=== PATIENT | female | born 1950 | race Caucasian/White ===

== ENCOUNTER 2024-04-07 17:43 | Emergency (ER) | payer MEDICARE, MEDICAID, SELFPAY ==
[2024-04-07 17:45] VITALS: BMI 26.6
[2024-04-07 17:54] VITALS: BP 135/72; PULSE 92; RESP 18; TEMP 36.4; O2SAT 100
--- NOTE | 2024-04-07 18:07 | XR_ITS ---
Examination: PA lateral chest 2 views Technique: Upright PA lateral chest 2 views Exam date and time: April 07, 2024 1840 hrs. Comparison June 16, 2023 Indications: Coughing with altered mental status today. Findings: Normal heart size Ectatic thoracic aorta. No lobar pneumonia or pulmonary edema Significant osteoarthritis right glenohumeral joint Impression: No lobar pneumonia or pulmonary edema
--- NOTE | 2024-04-07 18:08 | XR_ITS ---
Examination: CT brain head without contrast. 2-D sagittal coronal reconstructions Date and time of exam:April 07, 2024 1926 hrs. Indications: Loss of consciousness episode one month ago with persistent altered mental status Comparison: October 22, 2023 CTDI: vol (mGy):48.4 DLP: (mGycm):947 Technique: Multiple CT axial sections of the brain have been obtained, 5 mm slice thickness. Contrast has not been administered. 2-D sagittal, coronal reconstructions have been obtained Low dose protocols were performed. One or more of the following dose reduction techniques were used; automated exposure control, adjustment of the mA and/or KV according to patient size, use of iterative reconstruction technique. Findings: No significant ventricular enlargement. Intra-axial or extra-axial hemorrhage density is not seen. No mass effect or midline shift Basal cisterns are not remarkable. Fourth ventricle is midline. Cranial vault intact. Impression: Negative for acute hemorrhage, mass effect or midline shift As clinically warranted, brain MRI follow-up would best assess for acute ischemic change
--- NOTE | 2024-04-07 18:08 | PD.EDRME ---
Rapid Medical Screening Exam RME Arrival date/time: 04/07/24 17:43 74-year-old female presents emergency department today with caregiver who reports patient has increased changes in mental status over the last month Chief Complaint: Altered Mental Status Vital signs: Vital Signs Temperature 97.5 F 04/07/24 17:54 Pulse Rate 92 04/07/24 17:54 Respiratory Rate 18 04/07/24 17:54 Blood Pressure 135/72 H 04/07/24 17:54 Pulse Oximetry (%) 100 04/07/24 17:54 Oxygen Delivery Method Room Air 04/07/24 17:54
[2024-04-07 18:39] LABS: Collection Type, Urine Clean Catch
[2024-04-07 18:40] LABS: Lactate (Lactic Acid) 1.3 mMol/L (0.4-2.0)
[2024-04-07 18:47] LABS: Basophils % (Auto) 1 % (0-2.5); Eosinophils # (Auto) 0.2 Thou/mm3 (0.0-0.5); Eosinophils % (Auto) 3 % (0-10); Hematocrit 35.9 % (36.0-46.0); Hemoglobin 11.8 g/dL (12.0-16.0); Immature Granulocytes % (Auto) 1 % (0-0); Immature Granulocytes Auto 0.05 Thou/mm3 (0.00-0.00); Lymphocytes # (Auto) 1.9 Thou/mm3 (1.0-4.8); Lymphocytes % (Auto) 29 % (10-50); Mean Corpuscular HGB Conc 32.9 g/dl (31.0-37.0); Mean Corpuscular Hemoglobin 29.9 pg (25.0-35.0); Mean Corpuscular Volume 91 fL (80-100); Monocytes # (Auto) 0.7 Thou/mm3 (0.0-0.8); Monocytes % (Auto) 11 % (0-12); Neutrophils # (Auto) 3.8 Thou/mm3 (1.8-7.7); Neutrophils % (Auto) 57 % (37-80); Nucleated Red Blood Cell % 0 /100 WBC (0); Platelet Count 110 Thou/mm3 (140-440); RDW Standard Deviation 49.2 fL (36.4-46.3); Red Blood Count 3.94 Miln/mm3 (4.00-5.20); White Blood Count 6.7 Thou/mm3 (3.6-11.0)
[2024-04-07 19:06] LABS: Ammonia < 10 uMol/L (11-32)
[2024-04-07 19:22] LABS: Bilirubin,Urine Negative (Negative); Blood,Urine Negative (Negative); Budding Yeast,Urine Present; Color,Urine Yellow (Lt Yel-Yel); Glucose, Urine Negative (Negative); Hyaline Casts,Urine < 1 /hpf (0-1); Ketones,Urine Trace (Negative); Leukocyte Esterase,Urine Positive (Negative); Nitrite,Urine Negative (Negative); PH,Urine 6.5 (5.0-7.0); Protein,Urine 1+ (Neg - Trace); RBC,Urine 15 /hpf (0-3); Specific Gravity,Urine 1.031 (1.001-1.035); Squamous Epithelial Cell,Urine 5 /hpf (0-5); WBC,Urine 1043 /hpf (0-5)
[2024-04-07 19:23] LABS: Clarity,Urine Turbid (Clear/Hazy)
[2024-04-07 19:57] VITALS: BP 162/73; PULSE 63; RESP 17; O2SAT 100
[2024-04-07 20:30] LABS: Alanine Aminotransferase 20 U/L (10-49); Albumin, Serum 4.2 gm/dL (3.4-4.8); Albumin/Globulin Ratio 1.8 (1.2-2.2); Alkaline Phosphatase 97 U/L (46-116); Anion Gap 7 (7-16); Aspartate Amino Transferase 20 U/L (0-34); BUN/Creatinine Ratio 36 Ratio (12-20); Bilirubin,Total 0.3 mg/dL (0.3-1.2); Blood Urea Nitrogen 29 mg/dL (9-23); Calcium 9.5 mg/dL (8.3-10.6); Calcium (Corrected) 9.5 mg/dL (8.5-10.1); Carbon Dioxide 26.9 mMol/L (20.0-31.0); Chloride 102 mMol/L (98-107); Creatinine (Component) 0.8 mg/dL (0.6-1.3); Estimated Creatinine Clearance 55.9 mL/min (>60); Globulin 2.3 gm/dL (2.3-3.5); Glucose 94 mg/dL (74-106); Osmolality,Calculated 277 (275-295); Potassium 4.5 mMol/L (3.4-5.1); Procalcitonin 0.04 ng/ml (0.0-0.49); Sodium 136 mMol/L (136-145); Total Protein 6.5 gm/dL (5.7-8.2); eGFR > 60 See Note
--- NOTE | 2024-04-07 20:53 | EDNOTE_ITS ---
<Statement entered by Claudia Henao MD - 04/08/24 21:15> As co-signing physician, I was present and available for consult prn. I concur with the plan and care as documented by the midlevel provider. ED General RME/HPI General Chief complaint: Altered Mental Status Stated complaint: AMS FOR 1 MONTH, SENT BY PSYCH MD Time Seen by Provider: 04/07/24 18:47 Arrival date/time: 04/07/24 17:43 CC: Slow increasing confusion over the past month. Caregiver reports that the patient approximately 3 weeks ago was diagnosed with a urinary tract infection was given antibiotics it resolved and then promptly returned. She states the patient has become more confused but is responding to the most basic questions. Care provider denies falls fever at home diarrhea. RME / HPI RME / HPI narrative: 04/07/24 17:43 74-year-old female presents emergency department today with caregiver who reports patient has increased changes in mental status over the last month Related Data Home Medications ?Medication ?Instructions ?Recorded ?Confirmed ascorbic acid (vitamin C) 500 mg 500 mg PO BID #0 tabs 10/21/14 06/16/23 tablet (Vitamin C) aspirin 81 mg tablet,delayed 1 tab PO DAILY 01/01/18 06/16/23 release diclofenac sodium 75 mg 75 mg PO QDAY 09/06/21 06/16/23 tablet,delayed release docusate sodium 100 mg capsule 100 mg PO BID 09/06/21 06/16/23 levomilnacipran 80 mg capsule,24 80 mg PO HS 09/06/21 06/16/23 hr,extended release (Fetzima) metformin 500 mg tablet 500 mg PO QDAY 09/06/21 06/16/23 omeprazole 40 mg capsule,delayed 1 cap PO QDAY 09/06/21 06/16/23 release simvastatin 20 mg tablet 20 mg PO QPM 09/06/21 06/16/23 cetirizine 10 mg tablet 10 mg PO HS 06/16/23 06/16/23 deutetrabenazine 9 mg tablet 9 mg PO BID 06/16/23 06/16/23 (Austedo) divalproex 500 mg tablet,delayed 500 mg PO TID 06/16/23 06/16/23 release hydroxyzine HCl 50 mg tablet 50 mg PO HS 06/16/23 06/16/23 losartan 50 mg tablet 50 mg PO DAILY 06/16/23 06/16/23 oxybutynin chloride 5 mg tablet 5 mg PO BID 06/16/23 06/16/23 quetiapine 300 mg tablet 300 mg PO HS 06/16/23 06/16/23 Previous Rx's ?Medication ?Instructions ?Recorded ciprofloxacin HCl 500 mg tablet 500 mg PO BID #14 tabs 04/07/24 (Cipro) Allergies Allergy/AdvReac Type Severity Reaction Status Date / Time No Known Allergies Allergy Verified 10/22/23 15:47 Review of Systems Review of Systems ROS Unobtainable: unobtainable due to mental status Past Medical History Past Medical History NEUROLOGIC: Negative Neurological Disorders, Dementia, Seizures or Epilepsy CARDIAC: Positive Cardiac Disorders, Hypercholesterolemia and Hypertension; Negative Congestive Heart Failure RESPIRATORY: Negative Chronic Obstructive Pulmonary Disease (COPD) or Asthma GASTROINTESTINAL: Positive Gastroesophageal Reflux Disease; Negative Gastrointestinal Disorders GENITOURINARY: Negative Genitourinary Disorders, Renal Disease or Kidney Stones MUSCULOSKELETAL: Negative Musculoskeletal Disorders ENDOCRINE: Positive Endocrine Disorders and Diabetes Mellitus Type 2; Negative Diabetes Mellitus Type 1 HEMATOLOGIC: Negative Blood Disorders or Sickle Cell Disease PSYCHO/SOCIAL: Positive Schizophrenia, Bipolar Disorder, Depression and Behavior Problems OTHER HISTORY: Positive Developmental Delay and Falls; Negative Autoimmune Disease, Autism, Blood Transfusions, Blood Transfusion Reaction or Anesthesia Reactions Family History FAMILY HISTORY: Negative Family Psychiatric Problems, Family Respiratory Disorders, Family Cardiac Disorders or Family Gastrointestinal Problems Social History SMOKING STATUS: Never smoker SECOND HAND EXPOSURE: No SUBSTANCE USE: does not use ED Exam Narrative Physical exam: [General: Emotional, mildly confused, appears not in any acute distress Head normocephalic HEENT: Eyes pupils are PERRLA EOMs are intact no injected conjunctiva mouth pink moist membranes uvula is midline swallow symmetrical phonation is normal. Within acceptable limits Neck is supple nontender no JVD no edema Chest equal chest rise nontender to palpation Respiratory: Clear to auscultation no wheezes crackles or rubs CV: Rate rhythm is regular no murmurs rubs or clicks Abdomen is distended secondary to body habitus soft nontender no masses positive bowel sounds all 4 quadrants Back: No CVA tenderness no spinous process tenderness from cervical spine thoracic and lumbar spine Skin: Intact no petechiae rash induration ulceration or crepitus Extremities: Moving all extremity against resistance cap refill less than 2 seconds neurosensory intact. No lower extremity edema Neuro: Awake alert oriented x1, self, Glascow coma 15 no focal deficits] Course Quality Measures none Orders Category Date Time Status CT head/brain wo con Stat Exams 04/07/24 18:08 Completed XR chest 2V Stat Exams 04/07/24 18:07 Completed Ammonia Stat Lab 04/07/24 18:29 Completed Blood Culture (Lab) Stat Lab 04/07/24 18:32 Received CBC Stat Lab 04/07/24 18:29 Completed Comprehensive Metabolic Panel Stat Lab 04/07/24 18:29 Completed Lactate (Lactic Acid) Stat Lab 04/07/24 18:29 Completed Procalcitonin Stat Lab 04/07/24 18:29 Completed Urinalysis Stat Lab 04/07/24 18:15 Completed Urine Culture Stat Lab 04/07/24 18:15 Received Sodium Chloride 0.9% 1000 ml [Ns] 1,000 ml Med 04/07/24 20:52 Discontinued IV 999 mls/hr cefTRIAXone/D5w 1gm IV premix [Rocephin/D5w 1gm IV Med 04/07/24 20:52 Discontinued premix] 50 ml IV X1 Vital Signs Vital signs: Vital Signs Temperature 97.5 F 04/07/24 17:54 Pulse Rate 92 04/07/24 17:54 Respiratory Rate 18 04/07/24 17:54 Blood Pressure 135/72 H 04/07/24 17:54 Pulse Oximetry (%) 100 04/07/24 17:54 Oxygen Delivery Method Room Air 04/07/24 17:54 [facility] Patient data External records reviewed:: [facility] previous records Clinical information provided by:: patient and hair assistant Social determinants that could affect healthcare access:: none Patient has the following chronic illnesses:: Diabetes hypertension hyperlipidemia How is presenting disease/condition affected by chronic disease/condition?: u neffected by Evaluation data The following diagnostics were reviewed and interpreted by me:: lab results and radiology exam(s) Lab and/or radiology exams considered but not ordered:: CBC shows no leukocytosis, there is a stable H&H anemia of 11 and 35 respectively no thrombocytopenia CMP shows a sodium 136 potassium 3.4 chloride of 102 CO2 of 26.9 BUN of 29 creatinine 0.8 glucose of 94. Chest x-ray is negative as interpreted me read by radiology CT of the head is negative as interpreted by me read by radiology for any acute finding requires emergent or immediate intervention. Urine is positive for urinary tract infection Interpretation Summary: UTI dehydration Patient was given IV antibiotics and IV fluids will discharge the patient home on antibiotics for follow-up. Care provider was advised to picking belt operator the culture and sensitivity in 7 days from this urine specimen. Medications Medications considered but not ordered:: None Medication administrations:: Medication Administration History Discontinued Medications Sodium Chloride (Ns) 1,000 mls @ 999 mls/hr IV .Q1H1M ONE Stop: 04/07/24 21:52 Last Admin: 04/07/24 21:06 Dose: 999 mls/hr Documented By: CHARLEY Ceftriaxone Sodium/Dextrose (Rocephin/D5w 1gm Iv Premix) 50 mls @ 100 mls/hr IV X1 ONE Stop: 04/07/24 21:21 Last Admin: 04/07/24 21:06 Dose: 100 mls/hr Documented By: CHARLEY None Consultations Consultation(s) initiated? (list below): No Diagnosis Differential Diagnosis ED Complaint MDM: UTI pyelonephritis cystitis Most likely diagnosis given after review of the tests above:: UTI Admission Indicated Admission indicated?: not indicated Explain why admission is indicated or not indicated:: Stable for outpatient follow-up Admission Request Was there a request for admission?: No Disposition Plan Disposition Plan: Discharge Discharge Attestation Discharge Attestation: The patient and all family members were given an opportunity to ask questions and understood the discharge instructions. Discharge instructions specifically effects, indications for sooner follow up or return to the emergency department, and the expected course of current diagnosis. Patient condition: Stable Medical Decision Making Differential Diagnosis Differential Diagnosis: UTI pyelonephritis cystitis Lab Data 04/07/24 18:29 04/07/24 18:29 Labs: Lab Results 04/07/24 04/07/24 Range/Units 18:15 18:29 WBC 6.7 (3.6-11.0) Thou/mm3 RBC 3.94 L (4.00-5.20) Miln/mm3 Hgb 11.8 L (12.0-16.0) g/dL Hct 35.9 L (36.0-46.0) % MCV 91 (80-100) fL MCH 29.9 (25.0-35.0) pg MCHC 32.9 (31.0-37.0) g/dl RDW Std Deviation 49.2 H (36.4-46.3) fL Plt Count 110 L (140-440) Thou/mm3 Neut % (Auto) 57 (37-80) % Lymph % (Auto) 29 (10-50) % [place] % (Auto) 11 (0-12) % Eos % (Auto) 3 (0-10) % Baso % (Auto) 1 (0-2.5) % Neut # (Auto) 3.8 (1.8-7.7) Thou/mm3 Lymph # (Auto) 1.9 (1.0-4.8) Thou/mm3 [place] # (Auto) 0.7 (0.0-0.8) Thou/mm3 Eos # (Auto) 0.2 (0.0-0.5) Thou/mm3 Baso # (Auto) 0.0 (0.0-0.2) Thou/mm3 Immature Gran # (Auto) 0.05 H (0.00-0.00) Thou/mm3 Absolute Nucleated RBC 0.00 (0.00-0.00) Thou/mm3 Immature Gran % 1 H (0-0) % Nucleated RBC % 0 (0) /100 WBC Sodium 136 (136-145) mMol/L Potassium 4.5 (3.4-5.1) mMol/L Chloride 102 (98-107) mMol/L Carbon Dioxide 26.9 (20.0-31.0) mMol/L Anion Gap 7 (7-16) BUN 29 H (9-23) mg/dL Creatinine 0.8 (0.6-1.3) mg/dL Estim Creat Clear Calc 55.9 L (>60) mL/min eGFR > 60 (60 - ) See Note BUN/Creatinine Ratio 36 H (12-20) Ratio Glucose 94 (74-106) mg/dL Calculated Osmolality 277 (275-295) Lactic Acid 1.3 (0.4-2.0) mMol/L Calcium 9.5 (8.3-10.6) mg/dL Corrected Calcium 9.5 (8.5-10.1) mg/dL Total Bilirubin 0.3 (0.3-1.2) mg/dL AST 20 (0-34) U/L ALT 20 (10-49) U/L Alkaline Phosphatase 97 (46-116) U/L Ammonia < 10 L (11-32) uMol/L Total Protein 6.5 (5.7-8.2) gm/dL Albumin 4.2 (3.4-4.8) gm/dL Globulin 2.3 (2.3-3.5) gm/dL Albumin/Globulin Ratio 1.8 (1.2-2.2) Procalcitonin 0.04 (0.0-0.49) ng/ml Ur Collection Type Clean Catch Urine Color Yellow (Lt Yel-Yel) Urine Clarity Turbid A (Clear/Hazy) Urine pH 6.5 (5.0-7.0) Ur Specific [place]oth 1.031 (1.001-1.035) Urine Protein 1+ A (Neg - Trace) Urine Glucose (UA) Negative (Negative) Urine Ketones Trace (Negative) Urine Blood Negative (Negative) Urine Nitrite Negative (Negative) Urine Bilirubin Negative (Negative) Urine Urobilinogen (Auto) 4.0 (0.0-1.0) mg/dL Ur Leukocyte Esterase Positive (Negative) Urine RBC 15 H (0-3) /hpf Urine WBC 1043 H (0-5) /hpf Ur Squamous Epith Cells 5 (0-5) /hpf Urine Bacteria None (None) Hyaline Casts < 1 (0-1) /hpf Urine Yeast (Budding) Present A (None) Discharge Plan Plan Patient Disposition: HOME (Self Care) Patient condition on transfer: Stable Prescriptions/Referrals Prescriptions/Med Rec: New ciprofloxacin HCl [Cipro] 500 mg tablet 500 mg PO BID Qty: 14 0RF No Action ascorbic acid (vitamin C) [Vitamin C] 500 MG tablet 500 mg PO BID Qty: 0 aspirin 81 mg Tablet,Delayed Release (Dr/Ec) 1 tab PO DAILY Rx Instructions: for cardio protection metformin 500 mg tablet 500 mg PO QDAY omeprazole 40 mg capsule,delayed release(DR/EC) 1 cap PO QDAY Rx Instructions: for gerd simvastatin 20 mg tablet 20 mg PO QPM docusate sodium 100 mg capsule 100 mg PO BID diclofenac sodium 75 mg tablet,delayed release (DR/EC) 75 mg PO QDAY Rx Instructions: for pain/inflammation Fetzima 80 mg capsule,extended release 24 hr 80 mg PO HS Rx Instructions: for behavior disorder oxybutynin chloride 5 mg tablet 5 mg PO BID [place] 9 mg Tablet 9 mg PO BID quetiapine 300 mg tablet 300 mg PO HS cetirizine 10 mg tablet 10 mg PO HS hydroxyzine HCl 50 mg tablet 50 mg PO HS losartan 50 mg tablet 50 mg PO DAILY divalproex 500 mg tablet,delayed release (DR/EC) 500 mg PO TID Referrals: Gera Seay MD [Primary Care Provider] - In 1 week Problem List Clinical Impression: Urinary tract infection, Dehydration Patient/Caregiver Discharge Instructions Education Materials: ED Dehydration (Adult), ED CYSTITIS Female Adult Additional Instructions: Take the medications as prescribed encourage plenty of fluids, call back and get the culture and sensitivity in 7 days for the urine show specimen submitted today. If there is a worsening of symptoms in spite of the medications return the emergency room immediately for further evaluation. Print Language: Turkish Stand Alone Forms: Malika Award Info., Patient Portal Info Letter, Work/School Release PA/FLAVOR EXTRACTOR Supervising Physician PA/FLAVOR EXTRACTOR Supervising Physician: Jason Spencer ENP
[2024-04-07] MEDS: cefTRIAXone/D5w 1gm IV premix 50 ML IV (21:06)
[2024-04-07] MEDS: SODIUM CHLORIDE 0.9% 1000 ML 1,000 ML 999 ML IV (21:06)
[2024-04-07 22:18] VITALS: BP 177/94; PULSE 72; RESP 16; O2SAT 100
[2024-04-08 00:17] VITALS: BP 175/88; PULSE 82; RESP 18; TEMP 36.6; O2SAT 99
== END 2024-04-08 00:15 | disposition home or self-care (01) ==
PROVIDERS: Nurse Practitioner Primary Care; Emergency Provider Emergency Medicine; PCP Family Medicine
DX: E86.0 Dehydration (principal); N39.0 Urinary tract infection, site not specified; R41.82 Altered mental status, unspecified; R05.9 Cough, unspecified
CPT/HCPCS: 36415; 70450; 71046; 80053; 81001; 82140; 83605; 84145; 85025; 87040; 87077; 87086; 87186; 99284; J0696; J7030

== ENCOUNTER 2024-06-08 09:34 | Emergency (ER) | payer MEDICARE, MEDICAID, SELFPAY ==
[2024-06-08 09:55] VITALS: BP 129/76; PULSE 99; RESP 18; TEMP 36.4; O2SAT 95
--- NOTE | 2024-06-08 09:59 | PD.EDADULT ---
ED General RME/HPI General Chief complaint: General Adult/Misc Complain Stated complaint: SENT FROM PMD DUE TO LOW TEMP, NO COMPLAINTS Time Seen by Provider: 06/08/24 09:39 Arrival date/time: 06/08/24 09:34 74-year-old female with history of schizophrenia and developmental delay presents to the emergency department today with caregiver reports that the patient went to the doctor's office today to establish care with a new physician they were unable to obtain a temperature and therefore they referred her to the ER for further evaluation Limitations: no limitations Related Data Home Medications ?Medication ?Instructions ?Recorded ?Confirmed ascorbic acid (vitamin C) 500 mg 500 mg PO BID #0 tabs 10/21/14 06/16/23 tablet (Vitamin C) aspirin 81 mg tablet,delayed 1 tab PO DAILY 01/01/18 06/16/23 release diclofenac sodium 75 mg 75 mg PO QDAY 09/06/21 06/16/23 tablet,delayed release docusate sodium 100 mg capsule 100 mg PO BID 09/06/21 06/16/23 levomilnacipran 80 mg capsule,24 80 mg PO HS 09/06/21 06/16/23 hr,extended release (Fetzima) metformin 500 mg tablet 500 mg PO QDAY 09/06/21 06/16/23 omeprazole 40 mg capsule,delayed 1 cap PO QDAY 09/06/21 06/16/23 release simvastatin 20 mg tablet 20 mg PO QPM 09/06/21 06/16/23 cetirizine 10 mg tablet 10 mg PO HS 06/16/23 06/16/23 deutetrabenazine 9 mg tablet 9 mg PO BID 06/16/23 06/16/23 (Austedo) divalproex 500 mg tablet,delayed 500 mg PO TID 06/16/23 06/16/23 release hydroxyzine HCl 50 mg tablet 50 mg PO HS 06/16/23 06/16/23 losartan 50 mg tablet 50 mg PO DAILY 06/16/23 06/16/23 oxybutynin chloride 5 mg tablet 5 mg PO BID 06/16/23 06/16/23 quetiapine 300 mg tablet 300 mg PO HS 06/16/23 06/16/23 Previous Rx's ?Medication ?Instructions ?Recorded ciprofloxacin HCl 500 mg tablet 500 mg PO BID #14 tabs 04/07/24 (Cipro) Allergies Allergy/AdvReac Type Severity Reaction Status Date / Time No Known Allergies Allergy Verified 06/08/24 09:38 Review of Systems Review of Systems Systems Reviewed: All systems reviewed, normal except as documented ROS Unobtainable: other (Developmental delay) Constitutional Constitutional: Reports system reviewed and no additional complaints, except as documented, Denies fever(s) and Denies headache(s) Eyes Eyes: Reports system reviewed and no additional complaints, except as documented and Denies blurry vision ENT Ears, Nose, Mouth, and Throat: Reports system reviewed and no additional complaints, except as documented, Denies headache(s), Denies nasal congestion and Denies nasal discharge Cardiovascular Cardiovascular: Reports system reviewed and no additional complaints, except as documented, Denies chest pain and Denies dyspnea Respiratory Respiratory: Reports system reviewed and no additional complaints, except as documented, Denies chest congestion, Denies cough and Denies dyspnea Gastrointestinal Gastrointestinal: Reports system reviewed and no additional complaints, except as documented and Denies abdominal pain Integumentary/Breasts Skin/Breast: Reports system reviewed and no additional complaints, except as documented and Denies rash Neurologic Neurologic: Reports system reviewed and no additional complaints, except as documented, Reports as per HPI and Denies headache(s) Past Medical History Past Medical History NEUROLOGIC: Negative Neurological Disorders, Dementia, Seizures or Epilepsy CARDIAC: Positive Cardiac Disorders, Hypercholesterolemia and Hypertension; Negative Congestive Heart Failure RESPIRATORY: Negative Chronic Obstructive Pulmonary Disease (COPD) or Asthma GASTROINTESTINAL: Positive Gastroesophageal Reflux Disease; Negative Gastrointestinal Disorders GENITOURINARY: Negative Genitourinary Disorders, Renal Disease or Kidney Stones MUSCULOSKELETAL: Negative Musculoskeletal Disorders ENDOCRINE: Positive Endocrine Disorders and Diabetes Mellitus Type 2; Negative Diabetes Mellitus Type 1 HEMATOLOGIC: Negative Blood Disorders or Sickle Cell Disease PSYCHO/SOCIAL: Positive Schizophrenia, Bipolar Disorder, Depression and Behavior Problems OTHER HISTORY: Positive Developmental Delay and Falls; Negative Autoimmune Disease, Autism, Blood Transfusions, Blood Transfusion Reaction or Anesthesia Reactions Family History FAMILY HISTORY: Negative Family Psychiatric Problems, Family Respiratory Disorders, Family Cardiac Disorders or Family Gastrointestinal Problems Social History SMOKING STATUS: Never smoker SECOND HAND EXPOSURE: No SUBSTANCE USE: does not use ED Exam General Limitations: Present no limitations General appearance: Present alert and in no apparent distress Head Head exam: Present atraumatic, normocephalic and normal inspection Eye Eye exam: Present normal appearance, PERRL and EOMI; Absent conjunctival injection ENT ENT exam: Present normal exam, normal oropharynx and mucous membranes moist Neck Neck exam: Present normal inspection, full ROM and trachea midline Chest Chest inspection: Present normal inspection and symmetric chest wall rise Respiratory Respiratory exam: Present normal lung sounds bilaterally; Absent respiratory distress Cardiovascular Cardiovascular exam: Present regular rate, normal rhythm and normal heart sounds Abdominal Exam Abdominal exam: Present soft and normal bowel sounds; Absent distention, tenderness, guarding, rebound or rigidity Extremities Exam Extremities exam: Present normal inspection and full ROM Back Exam Back exam: Present normal inspection and full ROM Neurological Exam Neurological exam: Present alert, oriented X3, CN II-XII intact, normal gait and reflexes normal; Absent motor sensory deficit Psychiatric Psychiatric exam: Present normal affect and normal mood Skin Skin exam: Present warm, dry, intact and normal color Course Quality Measures none Vital Signs Vital signs: Vital Signs Temperature 97.6 F 06/08/24 09:55 Pulse Rate 99 06/08/24 09:55 Respiratory Rate 18 06/08/24 09:55 Blood Pressure 129/76 06/08/24 09:55 Pulse Oximetry (%) 95 06/08/24 09:55 Oxygen Delivery Method Room Air 06/08/24 09:55 O2 saturation 95% room air within normal limits MDM Patient data External records reviewed:: [facility] previous records Clinical information provided by:: director heart Social determinants that could affect healthcare access:: mental health Patient has the following chronic illnesses:: See history How is presenting disease/condition affected by chronic disease/condition?: uneffected by Evaluation data The following diagnostics were reviewed and interpreted by me:: other (specify) (N/A) Lab and/or radiology exams considered but not ordered:: Not ordered Interpretation Summary: Not ordered Medications Medications considered but not ordered:: No meds Medication administrations:: No meds Consultations Consultation(s) initiated? (list below): No Diagnosis Differential Diagnosis ED Complaint MDM: Schizophrenia, normal exam, developmental delay Most likely diagnosis given after review of the tests above:: Normal exam Admission Indicated Admission indicated?: not indicated Explain why admission is indicated or not indicated:: No criteria Admission Request Was there a request for admission?: No Disposition Plan Disposition Plan: Discharge Discharge Attestation Discharge Attestation: The patient and all family members were given an opportunity to ask questions and understood the discharge instructions. Discharge instructions specifically effects, indications for sooner follow up or return to the emergency department, and the expected course of current diagnosis. Patient condition: Stable Medical Decision Making MDM Narrative MDM Narrative: 74-year-old female with history of schizophrenia and developmental delay presents to the emergency department today with caregiver reports that the patient went to the doctor's office today to establish care with a new physician they were unable to obtain a temperature and therefore they referred her to the ER for further evaluation On exam patient well-appearing patient does not appear ill or toxic Per caregiver patient is acting appropriately Vital signs obtained here no acute emergent abnormality noted Patient discharged home in no distress to follow-up with primary care doctor in the next 24 to 48 hours and for any worsening symptoms to return to the ER immediately Differential Diagnosis Differential Diagnosis: Schizophrenia, normal exam, developmental delay Medical Records Medical records reviewed: Yes I reviewed the patient's medical records. Discharge Plan Plan Patient Disposition: HOME (Self Care) Disposition Comment: Stable Prescriptions/Referrals Prescriptions/Med Rec: No Action ascorbic acid (vitamin C) [Vitamin C] 500 MG tablet 500 mg PO BID Qty: 0 aspirin 81 mg Tablet,Delayed Release (Dr/Ec) 1 tab PO DAILY Rx Instructions: for cardio protection metformin 500 mg tablet 500 mg PO QDAY omeprazole 40 mg capsule,delayed release(DR/EC) 1 cap PO QDAY Rx Instructions: for gerd simvastatin 20 mg tablet 20 mg PO QPM docusate sodium 100 mg capsule 100 mg PO BID diclofenac sodium 75 mg tablet,delayed release (DR/EC) 75 mg PO QDAY Rx Instructions: for pain/inflammation Fetzima 80 mg capsule,extended release 24 hr 80 mg PO HS Rx Instructions: for behavior disorder oxybutynin chloride 5 mg tablet 5 mg PO BID Austedo 9 mg Tablet 9 mg PO BID quetiapine 300 mg tablet 300 mg PO HS cetirizine 10 mg tablet 10 mg PO HS hydroxyzine HCl 50 mg tablet 50 mg PO HS losartan 50 mg tablet 50 mg PO DAILY divalproex 500 mg tablet,delayed release (DR/EC) 500 mg PO TID ciprofloxacin HCl [Cipro] 500 mg tablet 500 mg PO BID Qty: 14 0RF Problem List Clinical Impression: Normal exam Patient/Caregiver Discharge Instructions Additional Instructions: Please follow up with your primary care doctor in the next 24-48hrs for any worsening symptoms return here immediately Print Language: Arabic Stand Alone Forms: Malika Award Info., Patient Portal Info Letter PA/MEAT INSPECTOR Supervising Physician PA/MEAT INSPECTOR Supervising Physician: Dr Tamez
== END 2024-06-08 10:06 | disposition home or self-care (01) ==
LOC: SERX 10:11
PROVIDERS: Emergency Provider Emergency Medicine; PCP Physician Assistant
DX: Z00.00 Encounter for general adult medical examination without abnormal findings (principal); F20.9 Schizophrenia, unspecified
CPT/HCPCS: 99281

== ENCOUNTER → 2024-07-10 | Outpatient (CLI) | payer MEDICARE, MEDICAID, SELFPAY ==
--- NOTE | 2024-07-10 15:30 | XR_ITS ---
Examination: Breast ultrasound, unilateral, left complete Date and time of exam: July 10, 2024, 1530 hrs. Indications: Mammogram 01/13/2024 6 mm nodule retroareolar region left breast Technique: Real-time ponce scale ultrasonographic imaging performed left breast including all 4 quadrants as well as nipple retroareolar and axillary region. Findings: No cystic or solid mass, dilated ducts in the retroareolar region left breast Impression: BI-RADS Category 2: Benign findings
== END | disposition home or self-care (01) ==
PROVIDERS: PCP Physician Assistant; Referring Provider Physician Assistant; Visit Provider Physician Assistant
DX: R92.8 Other abnormal and inconclusive findings on diagnostic imaging of breast (principal)
CPT/HCPCS: 76641

== ENCOUNTER 2024-11-02 10:39 | Inpatient (IN) | payer MEDICARE, MEDICAID, SELFPAY ==
[2024-11-02 10:41] VITALS: BMI 27.7
[2024-11-02 10:58] VITALS: BP 93/63; PULSE 102; RESP 16; TEMP 37.7; O2SAT 96
--- NOTE | 2024-11-02 11:37 | PD.EDRME ---
Rapid Medical Screening Exam RME Arrival date/time: 11/02/24 10:39 Chief Complaint: Altered Mental Status Vital signs: Vital Signs Temperature 99.9 F 11/02/24 10:58 Pulse Rate 102 H 11/02/24 10:58 Respiratory Rate 16 11/02/24 10:58 Blood Pressure 93/63 11/02/24 10:58 Pulse Oximetry (%) 96 11/02/24 10:58 Oxygen Delivery Method Room Air 11/02/24 10:58 Pulse ox is 96% room air Vital signs reviewed by provider: Yes RME Narrative: 74-year-old female presents to the ED with a complaint of being altered that began earlier this morning. As per caregiver she was told the patient is not acting herself and has been actually falling asleep even throughout transfer. Has had an care at home to call her in car to the parking lot of the doctor's office.
--- NOTE | 2024-11-02 11:39 | XR_ITS ---
Examination: CT brain head without contrast. 2-D sagittal coronal reconstructions Date and time of exam:November 02, 2024 1241 hours INDICATIONS: Altered mental status today CTDI: vol (mGy):51.8 DLP: (mGycm):922 Technique: Multiple CT axial sections of the brain have been obtained, 5 mm slice thickness. Contrast has not been administered. 2-D sagittal, coronal reconstructions have been obtained Low dose protocols were performed. One or more of the following dose reduction techniques were used; automated exposure control, adjustment of the mA and/or KV according to patient size, use of iterative reconstruction technique. Findings: No significant ventricular enlargement. Intra-axial or extra-axial hemorrhage density is not seen. No mass effect or midline shift Basal cisterns are not remarkable. Fourth ventricle is midline. Cranial vault intact. Impression: Negative for acute hemorrhage, mass effect or midline shift Advise clinical correlation follow-up accordingly
[2024-11-02 12:25] LABS: Lactate (Lactic Acid) 1.7 mMol/L (0.4-2.0)
[2024-11-02 12:31] LABS: Basophils # (Auto) 0.0 Thou/mm3 (0.0-0.2); Basophils % (Auto) 0 % (0-2.5); Eosinophils # (Auto) 0.0 Thou/mm3 (0.0-0.5); Eosinophils % (Auto) 0 % (0-10); Hematocrit 37.5 % (36.0-46.0); Hemoglobin 12.9 g/dL (12.0-16.0); Immature Granulocytes Auto 0.05 Thou/mm3 (0.00-0.00); Lymphocytes # (Auto) 0.5 Thou/mm3 (1.0-4.8); Lymphocytes % (Auto) 6 % (10-50); Mean Corpuscular HGB Conc 34.4 g/dl (31.0-37.0); Mean Corpuscular Hemoglobin 31.1 pg (25.0-35.0); Mean Corpuscular Volume 90 fL (80-100); Monocytes # (Auto) 1.7 Thou/mm3 (0.0-0.8); Monocytes % (Auto) 19 % (0-12); Neutrophils # (Auto) 6.7 Thou/mm3 (1.8-7.7); Neutrophils % (Auto) 74 % (37-80); Nucleated Red Blood Cell # 0.00 Thou/mm3 (0.00-0.00); Nucleated Red Blood Cell % 0 /100 WBC (0); RDW Standard Deviation 49.9 fL (36.4-46.3); Red Blood Count 4.15 Miln/mm3 (4.00-5.20); White Blood Count 9.0 Thou/mm3 (3.6-11.0)
[2024-11-02 12:33] LABS: Platelet Count 62 Thou/mm3 (140-440)
[2024-11-02 12:51] LABS: INR 1.1 (0.9-1.3); Partial Thromboplastin Time 31.6 Seconds (22.0-36.0); Prothrombin Time 11.9 Seconds (9.0-12.2)
[2024-11-02 12:57] LABS: Alanine Aminotransferase 12 U/L (10-49); Albumin, Serum 3.9 gm/dL (3.4-4.8); Albumin/Globulin Ratio 1.5 (1.2-2.2); Alkaline Phosphatase 74 U/L (46-116); Anion Gap 12 (7-16); Aspartate Amino Transferase 15 U/L (0-34); BUN/Creatinine Ratio 22 Ratio (12-20); Bilirubin,Total 0.6 mg/dL (0.3-1.2); Blood Urea Nitrogen 28 mg/dL (9-23); Calcium 9.1 mg/dL (8.3-10.6); Calcium (Corrected) 9.2 mg/dL (8.5-10.1); Carbon Dioxide 27.1 mMol/L (20.0-31.0); Chloride 104 mMol/L (98-107); Creatinine (Component) 1.3 mg/dL (0.6-1.3); Estimated Creatinine Clearance 32.3 mL/min (>60); Globulin 2.6 gm/dL (2.3-3.5); Glucose 124 mg/dL (74-106); Osmolality,Calculated 291 (275-295); Potassium 4.4 mMol/L (3.4-5.1); Procalcitonin 9.46 ng/ml (0.0-0.49); Sodium 143 mMol/L (136-145); Total Protein 6.5 gm/dL (5.7-8.2); eGFR 43 See Note
[2024-11-02 13:43] LABS: Slide Review Platelets confirmed
[2024-11-02 16:00] VITALS: BP 123/68; PULSE 86; RESP 16; TEMP 36.8; O2SAT 94
--- NOTE | 2024-11-02 16:37 | PD.EDAMS ---
Altered Mental Status RME/HPI General Chief Complaint: Altered Mental Status Stated Complaint: ALTERED AND FADING IN AND OUT TODAY Arrival date/time: 11/02/24 10:39 Limitations: no limitations RME / HPI RME / HPI narrative: 74-year-old female presents to the ED with a complaint of being altered that began earlier this morning. As per caregiver she was told the patient is not acting herself and has been actually falling asleep even throughout transfer. Has had an care at home to call her in car to the parking lot of the doctor's office. DR. MOORE MAIN ED EVALUATION: 74 year old female with history of hypertension, hyperlipidemia, psychosis, and recurrent UTIs presents to the ED for evaluation of altered mental status. Caregiver reports the patient has been unusually somnolent since this morning and is complaining of generalized weakness and a sensation of feeling shaky. States they consulted with PCP today who advised she come to the ED for further evaluation due to concern for possible recurrent UTI, given the patient?s history and recent treatment for a prior infection. No other associated symptoms were reported. The caregiver denies fever, cough, shortness of breath, nausea, vomiting, or diarrhea. Related Data Home Medications ?Medication ?Instructions ?Recorded ?Confirmed ascorbic acid (vitamin C) 500 mg 500 mg PO BID #0 tabs 10/21/14 06/16/23 tablet (Vitamin C) aspirin 81 mg tablet,delayed 1 tab PO DAILY 01/01/18 06/16/23 release diclofenac sodium 75 mg 75 mg PO QDAY 09/06/21 06/16/23 tablet,delayed release docusate sodium 100 mg capsule 100 mg PO BID 09/06/21 06/16/23 levomilnacipran 80 mg capsule,24 80 mg PO HS 09/06/21 06/16/23 hr,extended release (Fetzima) metformin 500 mg tablet 500 mg PO QDAY 09/06/21 06/16/23 omeprazole 40 mg capsule,delayed 1 cap PO QDAY 09/06/21 06/16/23 release simvastatin 20 mg tablet 20 mg PO QPM 09/06/21 06/16/23 cetirizine 10 mg tablet 10 mg PO HS 06/16/23 06/16/23 deutetrabenazine 9 mg tablet 9 mg PO BID 06/16/23 06/16/23 (Austedo) divalproex 500 mg tablet,delayed 500 mg PO TID 06/16/23 06/16/23 release hydroxyzine HCl 50 mg tablet 50 mg PO HS 06/16/23 06/16/23 losartan 50 mg tablet 50 mg PO DAILY 06/16/23 06/16/23 oxybutynin chloride 5 mg tablet 5 mg PO BID 06/16/23 06/16/23 quetiapine 300 mg tablet 300 mg PO HS 06/16/23 06/16/23 Previous Rx's ?Medication ?Instructions ?Recorded ciprofloxacin HCl 500 mg tablet 500 mg PO BID #14 tabs 04/07/24 (Cipro) Allergies Allergy/AdvReac Type Severity Reaction Status Date / Time No Known Allergies Allergy Verified 11/02/24 10:43 Review of Systems Review of Systems ROS Unobtainable: unobtainable due to mental status Past Medical History Past Medical History CARDIAC: Positive Cardiac Disorders, Hypercholesterolemia and Hypertension GASTROINTESTINAL: Positive Gastroesophageal Reflux Disease ENDOCRINE: Positive Endocrine Disorders and Diabetes Mellitus Type 2 PSYCHO/SOCIAL: Positive Schizophrenia, Bipolar Disorder, Depression and Behavior Problems OTHER HISTORY: Positive Developmental Delay and Falls Family History FAMILY HISTORY: Negative Family Psychiatric Problems, Family Respiratory Disorders, Family Cardiac Disorders or Family Gastrointestinal Problems Social History SMOKING STATUS: Never smoker SECOND HAND EXPOSURE: No SUBSTANCE USE: does not use ED Exam General Limitations: Present no limitations General appearance: Present other (awake, appears confused, wears diapers) Head Head exam: Present atraumatic and normocephalic Eye Eye exam: Present PERRL, EOMI and other (eyelashes and eyelids with discharge bilaterally, conjunctiva are not injected ) ENT ENT exam: Present normal exam, normal oropharynx and mucous membranes moist Neck Neck exam: Present normal inspection, full ROM and trachea midline Chest Chest inspection: Present normal inspection and symmetric chest wall rise Respiratory Respiratory exam: Present normal lung sounds bilaterally Cardiovascular Cardiovascular exam: Present regular rate, normal rhythm and normal heart sounds Abdominal Exam Abdominal exam: Present soft and normal bowel sounds Extremities Exam Extremities exam: Present normal inspection and full ROM Back Exam Back exam: Present normal inspection and full ROM Neurological Exam Neurological exam: Present other (Awake, appears confused, couldn't test otherwise ) Psychiatric Psychiatric exam: Present normal affect and normal mood Skin Skin exam: Present warm, dry, intact and normal color Course Quality Measures Current suspected stage: sepsis Possible source: genitourinary Blood cultures ordered: completed in ED Antibiotic ordered: Yes Pertinent labs: 11/02/24 11/02/24 12:03 17:25 Lactic Acid 1.7 mMol/L Pending (0.4-2.0) Procalcitonin 9.46 H ng/ml (0.0-0.49) sepsis Orders Category Date Time Status Prep Person STAT Care 11/02/24 16:45 Active Continuous Pulse Oximetry STAT Care 11/02/24 16:45 Completed EKG (ED ONLY) *Do not use* NOW Care 11/02/24 16:45 Active In and Out Catheter X1 Care 11/02/24 16:38 Completed In and Out Catheter X1PRN Care 11/02/24 16:45 Completed Insert IV NOW Care 11/02/24 16:45 Active NPO STAT Care 11/02/24 16:45 Active Strict Intake and Output Routine Care 11/02/24 16:[address] head/brain wo con Stat Exams 11/02/24 11:39 Completed EKG (ED Only) Stat Exams 11/02/24 16:45 Ordered XR chest 1V SEPSIS PROTOCOL Stat Exams 11/02/24 16:47 Taken Blood Culture (Lab) Stat Lab 11/02/24 17:25 Ordered CBC Stat Lab 11/02/24 12:03 Completed CMP [Comprehensive Metabolic Panel] Stat Lab 11/02/24 12:03 Completed Lactate (Lactic Acid) Stat Lab 11/02/24 17:25 Received Lactic Acid [Lactate (Lactic Acid)] Stat Lab 11/02/24 12:03 Completed Lipase Stat Lab 11/02/24 17:25 Received Magnesium Stat Lab 11/02/24 17:25 Received PT [Prothrombin Time with INR] Stat Lab 11/02/24 12:03 Completed PTT [Partial Thromboplastin Time] Stat Lab 11/02/24 12:03 Completed Phosphorous Stat Lab 11/02/24 17:25 Received Procalcitonin Stat Lab 11/02/24 12:03 Completed Troponin I Stat Lab 11/02/24 17:25 Received UA, C/S IF [Urinalysis, C/S if Indicated] Stat Lab 11/02/24 16:41 Completed Urine Culture Stat Lab 11/02/24 16:41 Received Piper/Tazo 3.375 gm Premix [Zosyn] Med 11/02/24 16:45 Discontinued 3.375 gm in 50 ml IV X1 Sodium Chloride 0.9% 1000 ml [Ns] 1,365 ml Med 11/02/24 16:45 Discontinued IV 1,365 mls/hr Oxygen Delivery NOW RT 11/02/24 16:45 Active Vital Signs Vital signs: Vital Signs Temperature 99.9 F 11/02/24 10:58 Pulse Rate 102 H 11/02/24 10:58 Respiratory Rate 16 11/02/24 10:58 Blood Pressure 93/63 11/02/24 10:58 Pulse Oximetry (%) 96 11/02/24 10:58 Oxygen Delivery Method Room Air 11/02/24 10:58 Pulse ox is 96% on room air which is adequate. Altered Mental Status MDM Narrative MDM Narrative:: Lizy Nicholson am scribing for and in the presence of Dr. Moore. 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 Social determinants that could affect healthcare access:: housing (assisted resident ) Patient has the following chronic illnesses:: hypertension, hyperlipidemia, psychosis, and recurrent UTIs How is presenting disease/condition affected by chronic disease/condition?: exacerbated by Evaluation data The following diagnostics were reviewed and interpreted by me:: lab results, radiology exam(s) and EKG tracing(s) (Sinus tachycardia, rate 103, LVH, no STEMI) Lab and/or radiology exams considered but not ordered:: None Interpretation Summary: Ordering Physician: Toby Chou PA-C Date of Service: 11/02/24 Procedure(s): CT head/brain wo [facility] Accession Number(s): [id number] cc: Gera Seay MD; Jude Woody MD; Toby Chou PA-C~ Examination: CT brain head without contrast. 2-D sagittal coronal reconstructions Date and time of exam:November 02, 2024 1241 hours INDICATIONS: Altered mental status today CTDI: vol (mGy):51.8 DLP: (mGycm):922 Technique: Multiple CT axial sections of the brain have been obtained, 5 mm slice thickness. Contrast has not been administered. 2-D sagittal, coronal reconstructions have been obtained Low dose protocols were performed. One or more of the following dose reduction techniques were used; automated exposure control, adjustment of the mA and/or KV according to patient size, use of iterative reconstruction technique. Findings: No significant ventricular enlargement. Intra-axial or extra-axial hemorrhage density is not seen. No mass effect or midline shift Basal cisterns are not remarkable. Fourth ventricle is midline. Cranial vault intact. Impression: Negative for acute hemorrhage, mass effect or midline shift Advise clinical correlation follow-up accordingly Dictated By: Jude Woody MD Signed By: <Electronically signed by Jude Woody MD in OV> 11/02/24 1257 Medications / Prescriptions Medications or Prescriptions considered but not ordered:: None Medication administrations:: Medication Administration History Discontinued Medications Sodium Chloride (Ns) 1,365 mls @ 1,365 mls/hr 30 ml/kg infuse over 60 min (1365 ml) IV .Q1H ONE Stop: 11/02/24 17:44 Last Admin: 11/02/24 17:33 Dose: 1,365 mls/hr Documented By: MICHAEL Piperacillin/Tazobactam/Dextrose (Zosyn) 3.375 gm in 50 mls @ 100 mls/hr IV X1 ONE Stop: 11/02/24 17:14 Last Admin: 11/02/24 17:33 Dose: 100 mls/hr Documented By: MICHAEL See above Consultations Consultation(s) initiated? (list below): No Diagnosis Differential diagnosis altered mental status: altered mental status, hypoglycemia, sepsis and other (UTI ) Most likely diagnosis given after review of the tests above:: Sepsis 2/2 urinary source UTI AMS Admission Indicated Admission indicated?: indicated Admission Request Was there a request for admission?: Yes Admission Attestation Admission request attestation: Discussed case with [] from Hospitalist service regarding admission. Discussed patients ED course, exam findings, labs, and radiology results. The Hospitalist [agrees,declines] to accept the patient for admission. Disposition Plan Disposition Plan: Admit Discharge Plan Plan Patient Disposition: Admit Acute Care w/in Hospital Prescriptions/Referrals Prescriptions/Med Rec: No Action ascorbic acid (vitamin C) [Vitamin C] 500 MG tablet 500 mg PO BID Qty: 0 aspirin 81 mg Tablet,Delayed Release (Dr/Ec) 1 tab PO DAILY Rx Instructions: for cardio protection metformin 500 mg tablet 500 mg PO QDAY omeprazole 40 mg capsule,delayed release(DR/EC) 1 cap PO QDAY Rx Instructions: for gerd simvastatin 20 mg tablet 20 mg PO QPM docusate sodium 100 mg capsule 100 mg PO BID diclofenac sodium 75 mg tablet,delayed release (DR/EC) 75 mg PO QDAY Rx Instructions: for pain/inflammation Fetzima 80 mg capsule,extended release 24 hr 80 mg PO HS Rx Instructions: for behavior disorder oxybutynin chloride 5 mg tablet 5 mg PO BID Austedo 9 mg Tablet 9 mg PO BID quetiapine 300 mg tablet 300 mg PO HS cetirizine 10 mg tablet 10 mg PO HS hydroxyzine HCl 50 mg tablet 50 mg PO HS losartan 50 mg tablet 50 mg PO DAILY divalproex 500 mg tablet,delayed release (DR/EC) 500 mg PO TID ciprofloxacin HCl [Cipro] 500 mg tablet 500 mg PO BID Qty: 14 0RF Referrals: Gera Seay MD [Primary Care Provider] - In 1 week Problem List Clinical Impression: UTI (urinary tract infection), Sepsis, AMS (altered mental status) Patient/Caregiver Discharge Instructions Print Language: Ivorian Stand Alone Forms: Malika Award Info., Patient Portal Info Letter
--- NOTE | 2024-11-02 16:45 | EKG_ITS ---
[facility] Test Date: 2024-11-02 Pat Name: JERRY COE Department: Room: - Gender: Female Frit Burner: : 1950 Requested By: Dixon Root Order Number: [id number] Reading MD: Dixon Root Measurements Intervals [place] Rate: 77 P: 23 CT: 153 QRS: -9 QRSD: 107 T: 9 QT: 340 QTc: 386 Interpretive Statements SINUS RHYTHM LOW QRS VOLTAGE IN PRECORDIAL LEADS [QRS DEFLECTION < 1.0 mV IN CHEST LEADS] POSSIBLE ANTERIOR MYOCARDIAL INFARCTION , PROBABLY OLD [30 ms Q WAVE IN V3/V4, OR R < 0.2 mV IN V4] INFERIOR MYOCARDIAL INFARCTION , PROBABLY OLD [40+ ms Q WAVE AND/OR ST/T ABNORMALITY IN II/aVF] Compared to ECG 06/16/2023 12:41:57 Low QRS voltage now present Sinus tachycardia no longer present Myocardial infarct finding still present /store/S0/[id number].pdf
--- NOTE | 2024-11-02 16:47 | XR_ITS ---
Examination: AP chest single view TECHNIQUE: AP portable upright chest single view Date and time: November 02, 2024, 1747 hours Comparison April 07, 2024 INDICATIONS: Sepsis alert FINDINGS: No lobar pneumonia Mild to moderate enlargement left ventricle Mild vascular congestion. No pulmonary edema IMPRESSION: No lobar pneumonia identified
[2024-11-02 16:48] LABS: Collection Type, Urine Clean Catch; Squamous Epithelial Cell,Urine 0 /hpf (0-5)
[2024-11-02 17:00] VITALS: BP 114/48; PULSE 86; RESP 15; TEMP 36.9; O2SAT 99
[2024-11-02 17:03] VITALS: PULSE 85
[2024-11-02 17:18] LABS: Bacteria,Urine 1+; Bilirubin,Urine Negative (Negative); Blood,Urine 3+ (Negative); Color,Urine Yellow (Lt Yel-Yel); Glucose, Urine Negative (Negative); Hyaline Casts,Urine < 1 /hpf (0-1); Ketones,Urine Trace (Negative); Leukocyte Esterase,Urine Positive (Negative); Nitrite,Urine Negative (Negative); PH,Urine 5.5 (5.0-7.0); Protein,Urine 2+ (Neg - Trace); RBC,Urine 93 /hpf (0-3); Specific Gravity,Urine 1.022 (1.001-1.035); Urobilinogen,Urine 4.0 mg/dL (0.0-1.0); WBC,Urine 361 /hpf (0-5)
[2024-11-02 17:21] LABS: Clarity,Urine Cloudy (Clear/Hazy); Culture Indicated,Urine Yes
[2024-11-02] MEDS: SODIUM CHLORIDE 0.9% 1000 ML 1,365 ML 1365 ML IV (17:33)
[2024-11-02] MEDS: PIPER/TAZO 3.375 GM PREMIX 3.375 GM/50 ML BAG IV (17:33)
[2024-11-02 17:58] LABS: Lactate (Lactic Acid) 1.5 mMol/L (0.4-2.0)
[2024-11-02 17:59] VITALS: PULSE 83; RESP 100; RESP 20
--- NOTE | 2024-11-02 18:05 | PD.RESHP ---
Documentation for date of: 11/02/24 [facility] History of Present Illness History of present illness: Ms. Basilia Muir is a 74 yo woman with a past medical history of type 2 diabetes, hyperlipidemia, hypertension, GERD, schizophrenia, depression, and developmental delay and recurrent UTIs presents to the ED for evaluation of altered mental status. History was obtained via her women's health care nurse practitioner at bedside. pts caregiver had not seen pt for past 2 weeks and so today upon seeing her she noted that she was not at her baseline. Per caregiver, pt was noted to be more somnolent than at baseline and not able to hold a conversation. pt has been tremulous and reporting pain of her Left leg. pt had previously been able to ambulate with walker, however today pt is unable to ambulate and unwilling to get out of bed. endorses some mild shortness of breath, and nonproductive cough denies fevers, chills, abdominal pain, nausea, vomiting, dysuria, increased urinary frequency. ED course: In the ED, UA obtained with catheterization (pt unable to void) with positive leukocyte esterase and WBC. UCx pending. NCHCT, Negative for acute hemorrhage, mass effect or midline shift. CXR pending [facility] Review of Systems Review of Systems Narrative Review of Systems: as per hpi Past Medical History Surgical History OTHER SURGICAL HX: n/a Exam Vital Signs Temp Pulse Resp BP Pulse Ox O2 Del Method 98.5 F 83 20 114/48 L 99 Room Air 11/02/24 17:00 11/02/24 17:59 11/02/24 17:59 11/02/24 17:00 11/02/24 17:00 11/02/24 17:00 Narrative Exam GENERAL: no acute distress, comfortably laying in bed HEENT: Head AT/ NC. Mucous membranes dry. PERRL. nl conjuntiva, crusting and weeping around eyes CARDIOVASCULAR: RRR. Normal S1/S2, No m/r/g. trace bilateral edema RESPIRATORY: CTAB. No wheezing, rhonchi, crackles. GASTROINTESTINAL: Abdomen soft, non tender no palpable masses. Bowel sounds present, no suprapubic pain on palpation MUSCULOSKELETAL:? No cyanosis or edema, no visible joint swelling, Left Lower extremity tender to palpation NEUROLOGICAL: CN II-XII grossly intact. No focal deficits. Moving extrem 4x. able to follow basic commands. pt does not respond appropriately to questions. PSYCHIATRIC: Awake and alert, not agitated, normal mood and affect. SKIN: No obvious rashes, no jaundice, decrease skin turgor Results: Labs 11/03/24 04:35 11/03/24 04:35 Labs: Short CBC 11/02/24 Range/Units 12:03 WBC 9.0 (3.6-11.0) Thou/mm3 Hgb 12.9 (12.0-16.0) g/dL Hct 37.5 (36.0-46.0) % Plt Count 62 L (140-440) Thou/mm3 BMP 11/02/24 12:03 Sodium 143 Potassium 4.4 Chloride 104 Carbon Dioxide 27.1 BUN 28 H Creatinine 1.3 Glucose 124 H Calcium 9.1 Liver Function 11/02/24 Range/Units 12:03 Total Bilirubin 0.6 (0.3-1.2) mg/dL AST 15 (0-34) U/L ALT 12 (10-49) U/L Alkaline Phosphatase 74 (46-116) U/L Albumin 3.9 (3.4-4.8) gm/dL Urine 11/02/24 Range/Units 16:41 Urine Color Yellow (Lt Yel-Yel) Urine Clarity Cloudy A (Clear/Hazy) Urine pH 5.5 (5.0-7.0) Ur Specific [place] 1.022 (1.001-1.035) Urine Protein 2+ A (Neg - Trace) Urine Glucose (UA) Negative (Negative) Quality Measures Quality Measures sepsis Current suspected stage: sepsis Possible source: genitourinary Blood cultures ordered: completed in ED Antibiotic ordered: Yes Advance care planning discussed with:: other (vehicle care specialist ) Medications Home Medications and Allergies Home Medications ?Medication ?Instructions ?Recorded ?Confirmed ?Type ascorbic acid (vitamin C) 500 mg 500 mg PO BID #0 tabs 10/21/11/03/24 History tablet (Vitamin C) aspirin 81 mg tablet,delayed 1 tab PO DAILY 01/01/18 11/03/24 History release diclofenac sodium 75 mg 75 mg PO QDAY 09/06/21 11/03/24 History tablet,delayed release docusate sodium 100 mg capsule 100 mg PO BID 09/06/21 11/03/24 History levomilnacipran 80 mg capsule,24 80 mg PO HS 09/06/21 11/03/24 History hr,extended release (Fetzima) simvastatin 20 mg tablet 20 mg PO QPM 09/06/21 11/03/24 History divalproex 500 mg tablet,delayed 500 mg PO TID 06/16/23 11/03/24 History release losartan 50 mg tablet 50 mg PO DAILY 06/16/23 11/03/24 History benztropine 1 mg tablet 1 mg PO Q12HR 11/03/24 11/03/24 History melatonin 10 mg capsule 10 mg PO HS PRN sleep 11/03/24 11/03/24 History oxybutynin chloride 15 mg 15 mg PO DAILY 11/03/24 11/03/24 History tablet,extended release 24 hr risperidone 1 mg tablet 1 mg PO BID 11/03/24 11/03/24 History Allergies Allergy/AdvReac Type Severity Reaction Status Date / Time No Known Allergies Allergy Verified 11/02/24 10:43 Visit Medications Discontinued Medications Sodium Chloride (Ns) 1,365 mls @ 1,365 mls/hr 30 ml/kg infuse over 60 min (1365 ml) IV .Q1H ONE Stop: 11/02/24 17:44 Last Admin: 11/02/24 17:33 Dose: 1,365 mls/hr Piperacillin/Tazobactam/Dextrose (Zosyn) 3.375 gm in 50 mls @ 100 mls/hr IV X1 ONE Stop: 11/02/24 17:14 Last Admin: 11/02/24 17:33 Dose: 100 mls/hr Assessment & Plan Plan Ms. Basilia Muir is a 74 yo woman with a past medical history of type 2 diabetes, hyperlipidemia, hypertension, GERD, schizophrenia, depression, and developmental delay and recurrent UTIs presents to the ED for evaluation of altered mental status, no focal deficits and stroke work up negative. recieved zosyn in the ed then transitioned to CTX. #Sepsis 2/2 #UTI SOFA score 4 pt with hx of recurrent UTI, previously on nitrofuranotoin. presents with bacturia. pt unable to report LUTS, and pt did not demonstrate pain to palpation of suprapubic abdomen. Dx - UA with positive leuk esterase, and wbc - CXR unremarkable - Bcx pending - Urine Cx pending Tx - d/c Zosyn dosed in the ED - START CTX 1gm IV QD #WU 2/2 sepsis SOFA score 4 ddx pre vs intra vs post, favor prerenal given clinical presentation with UTI sepsis Cr 1.3 up from 0.8 Dx - daily CMP Tx - cont maintence fluids with LR #Acute encephalopathy, likely toxic pt with developmental delay. presents with AMS per caregiver, stroke work up negative, no focal deficits. likely 2/2 sepsis, CTM Dx - NCHT negative Tx - treat uti, see above - Delirium precautions (avoid sedating meds) Chronic #T2DM pt previously taking metformin, no longer. - carb consistent diet - ISS #GERD - consider ppi #HTN - home losartan 50 mg - asprin 81 mg #HLD not on statin #Overactive bladder - holding home oxybutynin #Schizoprenia #Depression cont home medications - Melatonin 9 mg qhs - risperidone 1 mg - levomilnacipran 80 mg qhs - benztropine 1mg qhs [facility]po: [facility] (pt was previously ambulating with walker), pending uti cultures, blood cx, on iv abx given refractory to oral uti treatment with macrobid. Diet: Dyphagia 2- Carb consistent diet Lines: 65ml/hr LR Bowel Reg: Senna 1 tab qd prn VTE ppx: subq heparin q12 GI ppx: not indicated at this time. Code status:FULL Case discussed with my attending Dr. Mahad Denney MD PGY-1 Attending Provider Attestation/Addendum Bharat, Janelle Tobin DO, attest that I was physically present for the mcdonald portions of the service and evaluated the patient with the resident and I reviewed and discussed the case with the resident and agree with the resident's findings and plans of care as documented above Patient is a 74-year-old female with past medical history of type 2 diabetes, hyperlipidemia, hypertension, GERD, schizophrenia, developmental delay and recurrent UTI who was brought to the ED by her caregiver due to altered mental status. Patient appeared more sluggish this morning and was not answering questions appropriately. Per caregiver, patient was quite tangential in response to questions which is not her usual. At baseline, patient ambulates with a walker and is very interactive and conversive. In the ED, patient was found to have an WU and UA with positive leukocyte esterase and pyuria. Patient also noticed to have low platelets and meets sepsis criteria secondary to UTI. Per caregiver, patient did recently take antibiotics for UTI about 3-4 weeks ago with Macrobid per chart review. Head CT was done in the ED showing no acute intracranial findings. She was given IV fluids and IV Zosyn in the ED. Previous cultures reviewed and no history of resistant UTIs. Will admit patient to telemetry due to sepsis secondary to UTI. Suspect acute metabolic encephalopathy secondary to UTI as well. Patient does appear to be very dehydrated with dry oral mucosa. No focal neurological deficits noted. Patient does have some crusting of her eyelashes. Will start patient on IV Rocephin and continue with IV antibiotics with ceftriaxone. Will follow-up with urine and blood cultures. Will admit patient to med/surge for further workup and medical management of sepsis secondary to UTI.
[2024-11-02 18:29] LABS: Lipase 14 U/L (12-53); Magnesium 1.9 mg/dL (1.6-2.6); Phosphorous 4.5 mg/dL (2.4-5.1); Troponin I < 0.020 ng/mL (0.0-0.045)
[2024-11-02 19:45] VITALS: BP 165/85; PULSE 97; RESP 19; RESP 99; TEMP 37; O2SAT 99
[2024-11-02] MEDS: cefTRIAXone/D5w 1gm IV premix 1 GM/50 ML BAG IV (19:57)
[2024-11-02] MEDS: RINGERS LACTATED 1000 ML 1,000 ML 65 ML IV (21:01)
[2024-11-02] MEDS: HEPARIN SOD INJ 5000 UNIT/ML VIAL SC (21:07)
[2024-11-02] MEDS: BENZTROPINE 0.5 MG TABLET 1 MG PO (21:07)
[2024-11-02] MEDS: DIVALPROEX SOD DR 500 MG TABLET.DR PO (21:08)
[2024-11-02 22:19] VITALS: BMI 27.7
[2024-11-03] VITALS (8 sets, daily range): BP systolic 111–153; BP diastolic 56–82; PULSE 65–110; RESP 16–96; TEMP 36.1–36.9; O2SAT 93–95; BMI 27.8
[2024-11-03] MEDS: DIVALPROEX SOD DR 500 MG TABLET.DR PO ×3 (05:28→21:12)
--- NOTE | 2024-11-03 06:14 | PC.NURSE ---
Called Amy care provider to do patient's med rec, there was no answer, left voicemail so she can bring med list today.
[2024-11-03 06:33] LABS: INR 1.1 (0.9-1.3); Partial Thromboplastin Time 27.8 Seconds (22.0-36.0); Prothrombin Time 12.1 Seconds (9.0-12.2)
[2024-11-03 06:34] LABS: Basophils # (Auto) 0.0 Thou/mm3 (0.0-0.2); Basophils % (Auto) 0 % (0-2.5); Eosinophils # (Auto) 0.0 Thou/mm3 (0.0-0.5); Eosinophils % (Auto) 0 % (0-10); Hematocrit 32.2 % (36.0-46.0); Hemoglobin 10.9 g/dL (12.0-16.0); Immature Granulocytes Auto 0.05 Thou/mm3 (0.00-0.00); Lymphocytes # (Auto) 0.9 Thou/mm3 (1.0-4.8); Lymphocytes % (Auto) 10 % (10-50); Mean Corpuscular HGB Conc 33.9 g/dl (31.0-37.0); Mean Corpuscular Hemoglobin 30.7 pg (25.0-35.0); Mean Corpuscular Volume 91 fL (80-100); Monocytes # (Auto) 1.6 Thou/mm3 (0.0-0.8); Monocytes % (Auto) 18 % (0-12); Neutrophils # (Auto) 6.1 Thou/mm3 (1.8-7.7); Neutrophils % (Auto) 71 % (37-80); Nucleated Red Blood Cell # 0.00 Thou/mm3 (0.00-0.00); Nucleated Red Blood Cell % 0 /100 WBC (0); RDW Standard Deviation 50.0 fL (36.4-46.3); Red Blood Count 3.55 Miln/mm3 (4.00-5.20); White Blood Count 8.6 Thou/mm3 (3.6-11.0)
[2024-11-03 06:38] LABS: Platelet Count 47 Thou/mm3 (140-440)
[2024-11-03 07:10] LABS: Glucose Estimated Average 97 mg/dL (80-131); Hemoglobin A1C 5.0 % Hgb (4.8-6.0)
[2024-11-03 07:25] LABS: Alanine Aminotransferase 8 U/L (10-49); Albumin, Serum 3.3 gm/dL (3.4-4.8); Albumin/Globulin Ratio 1.5 (1.2-2.2); Alkaline Phosphatase 59 U/L (46-116); Anion Gap 15 (7-16); Aspartate Amino Transferase 12 U/L (0-34); BUN/Creatinine Ratio 35 Ratio (12-20); Bilirubin,Total 0.4 mg/dL (0.3-1.2); Blood Urea Nitrogen 28 mg/dL (9-23); Calcium 8.5 mg/dL (8.3-10.6); Calcium (Corrected) 9.1 mg/dL (8.5-10.1); Carbon Dioxide 23.3 mMol/L (20.0-31.0); Cardiac Risk Estimate 2.4 RATIO (3.7-5.6); Chloride 108 mMol/L (98-107); Cholesterol 102 mg/dL (132-200); Creatinine (Component) 0.8 mg/dL (0.6-1.3); Estimated Creatinine Clearance 52.5 mL/min (>60); Globulin 2.2 gm/dL (2.3-3.5); Glucose 115 mg/dL (74-106); HDL Cholesterol 42 mg/dL (40-60); LDL Cholesterol,Calculated 42 mg/dL (0-130); Magnesium 1.7 mg/dL (1.6-2.6); Osmolality,Calculated 297 (275-295); Phosphorous 4.5 mg/dL (2.4-5.1); Potassium 3.8 mMol/L (3.4-5.1); Sodium 146 mMol/L (136-145); Total Protein 5.5 gm/dL (5.7-8.2); Triglycerides 90 mg/dL (30-150); eGFR > 60 See Note
[2024-11-03 07:33] LABS: Slide Review Platelets confirmed
[2024-11-03] MEDS: Magnesium Sulfate 2 GM Ivpb 2 GM/50 ML BAG IV (08:33)
[2024-11-03] MEDS: cefTRIAXone/D5w 1gm IV premix 1 GM/50 ML BAG IV (08:33)
[2024-11-03] MEDS: ASPIRIN EC 81 MG TABEC PO (08:34)
[2024-11-03] MEDS: HEPARIN SOD INJ 5000 UNIT/ML VIAL SC (08:34)
--- NOTE | 2024-11-03 09:36 | PC.SS ---
Patient Basilia Muir is a 74 Year old female admitted for AMS. contacted guar of Handicapped, Amy Hollingsworth [phone]. to complete initial assessment and confirm discharge plan. Amy reports patient resides at [facility]. Patient in not conserved however [facility] makes medical decisions, patient's case hardener Glory Marquez is patient's case hardener [phone]. Patient is able to ambulate with Rollator walker. Patient needs assistance completing ADL's. Choice of pharmacy is [facility]. At time of discharge patient will return back to [facility] [address]. snf will provide transportation. [phone] Discharge Plan [facility]
--- NOTE | 2024-11-03 11:19 | ESPR_ITS ---
<Statement entered by Oleg Mar MD - 11/03/24 17:24> Patient seen and examined at bedside, no acute overnight events. I discussed and supervised with the it intern physician who took care of this patient. I personally saw and examined the patient. I agree with most of the assessment and plan. Patient improved significantly with IV antibiotics, much more alert and responsive. Remains weaker than baseline per caregiver at bedside, PT eval ordered. Continue IVF and IV antibiotics. Plan of care discussed with attending Dr. Tobin. Oleg Mar MD PGY-2 Documentation for date of: 11/03/24 Subjective Subjective Interval history: No acute events clinical aide at bedside, states that pt is closer to her baseline than yesterday, responding more appropriately to questions, caregiver reports wiping eye crusting from pt eyes Exam Vital Signs Temp Pulse Resp BP Pulse Ox O2 Del Method 97.2 F 65 16 125/58 L 94 L Room Air 11/03/24 08:00 11/03/24 08:00 11/03/24 08:00 11/03/24 08:00 11/03/24 08:00 11/03/24 08:00 Vitals over the past 24hours were reviewed: Temp: Afebrile HR: wnl BP: wnl RR: satting well on RA Narrative Exam GENERAL: no acute distress, comfortably laying in bed smiling HEENT: Head AT/ NC. Mucous membranes dry. PERRL. nl conjuntiva, some crusting and weeping around eyes CARDIOVASCULAR: RRR. Normal S1/S2, No m/r/g. trace bilateral edema RESPIRATORY: CTAB. No wheezing, rhonchi, crackles. GASTROINTESTINAL: Abdomen soft, non tender no palpable masses. Bowel sounds present, no suprapubic pain on palpation MUSCULOSKELETAL:? No cyanosis or edema, no visible joint swelling, Left Lower extremity tender to palpation NEUROLOGICAL: oriented to self and place. CN II-XII grossly intact. No focal deficits. Moving extrem 4x. able to follow basic commands. pt responding more appropriately to questions. PSYCHIATRIC: Awake and alert, not agitated, normal mood and affect. SKIN: No obvious rashes, no jaundice, decrease skin turgor Objective Labs 11/04/24 05:22 11/04/24 05:22 Labs: Laboratory Results - last 24 hr 11/02/24 11/02/24 11/02/24 12:03 16:41 17:25 WBC 9.0 RBC 4.15 Hgb 12.9 Hct 37.5 MCV 90 MCH 31.1 MCHC 34.4 RDW Std Deviation 49.9 H Plt Count 62 L Neut % (Auto) 74 Lymph % (Auto) 6 L [place] % (Auto) 19 H Eos % (Auto) 0 Baso % (Auto) 0 Neut # (Auto) 6.7 Lymph # (Auto) 0.5 L [place] # (Auto) 1.7 H Eos # (Auto) 0.0 Baso # (Auto) 0.0 Immature Gran # (Auto) 0.05 H Absolute Nucleated RBC 0.00 Immature Gran % 1 H Nucleated RBC % 0 PT 11.9 INR 1.1 APTT 31.6 Sodium 143 Potassium 4.4 Chloride 104 Carbon Dioxide 27.1 Anion Gap 12 BUN 28 H Creatinine 1.3 Estim Creat Clear Calc 32.3 L eGFR 43 L BUN/Creatinine Ratio 22 H Glucose [address] Glu mg/dL Hemoglobin A1c Calculated Osmolality 291 Lactic Acid 1.7 1.5 Calcium 9.1 Corrected Calcium 9.2 Phosphorus 4.5 Magnesium 1.9 Total Bilirubin 0.6 AST 15 ALT 12 Alkaline Phosphatase 74 Troponin I < 0.020 Total Protein 6.5 Albumin 3.9 Globulin 2.6 Albumin/Globulin Ratio 1.5 Triglycerides Cholesterol LDL Cholesterol, Calc HDL Cholesterol Cholesterol/HDL Ratio Lipase 14 Procalcitonin 9.46 H Ur Collection Type Clean Catch Urine Color Yellow Urine Clarity Cloudy A Urine pH 5.5 Ur Specific [place] 1.022 Urine Protein 2+ A Urine Glucose (UA) Negative Urine Ketones Trace Urine Blood 3+ A Urine Nitrite Negative Urine Bilirubin Negative Urine Urobilinogen (Auto) 4.0 Ur Leukocyte Esterase Positive Urine RBC 93 H Urine WBC 361 H Ur Squamous Epith Cells 0 Urine Bacteria 1+ A Hyaline Casts < 1 Ur Culture Indicated? Yes Misc Test Result Platelets confirmed 11/03/24 04:35 WBC 8.6 RBC 3.55 L Hgb 10.9 L D Hct 32.2 L MCV 91 MCH 30.7 MCHC 33.9 RDW Std Deviation 50.0 H Plt Count 47 L D Neut % (Auto) 71 Lymph % (Auto) 10 [place] % (Auto) 18 H Eos % (Auto) 0 Baso % (Auto) 0 Neut # (Auto) 6.1 Lymph # (Auto) 0.9 L [place] # (Auto) 1.6 H Eos # (Auto) 0.0 Baso # (Auto) 0.0 Immature Gran # (Auto) 0.05 H Absolute Nucleated RBC 0.00 Immature Gran % 1 H Nucleated RBC % 0 PT 12.1 INR 1.1 APTT 27.8 Sodium 146 H Potassium 3.8 D Chloride 108 H Carbon Dioxide 23.3 Anion Gap 15 BUN 28 H Creatinine 0.8 D Estim Creat Clear Calc 52.5 L eGFR > 60 BUN/Creatinine Ratio 35 H Glucose [address] Glu mg/dL 97 Hemoglobin A1c 5.0 Calculated Osmolality 297 H Lactic Acid Calcium 8.5 Corrected Calcium 9.1 Phosphorus 4.5 Magnesium 1.7 Total Bilirubin 0.4 AST 12 ALT 8 L Alkaline Phosphatase 59 D Troponin I Total Protein 5.5 L Albumin 3.3 L D Globulin 2.2 L Albumin/Globulin Ratio 1.5 Triglycerides 90 Cholesterol 102 L LDL Cholesterol, Calc 42 HDL Cholesterol 42 Cholesterol/HDL Ratio 2.4 L Lipase Procalcitonin Ur Collection Type Urine Color Urine Clarity Urine pH Ur Specific [place] Urine Protein Urine Glucose (UA) Urine Ketones Urine Blood Urine Nitrite Urine Bilirubin Urine Urobilinogen (Auto) Ur Leukocyte Esterase Urine RBC Urine WBC Ur Squamous Epith Cells Urine Bacteria Hyaline Casts Ur Culture Indicated? Misc Test Result Platelets confirmed Quality Measures Quality Measures sepsis Current suspected stage: sepsis Possible source: genitourinary Blood cultures ordered: completed in ED Antibiotic ordered: Yes Advance care planning discussed with:: other (caregiver) Assessment & Plan Assessment Current Active Medications: Generic Name Dose Route Start Last Admin Trade Name Freq PRN Reason Stop Dose Admin Acetaminophen 650 mg 11/02/24 18:26 Acetaminophen 325 Mg Tablet PO 12/02/24 18:25 Q6H PRN Pain Scale 1-3 (Mild) or fever Aspirin 81 mg 11/03/24 09:00 11/03/24 08:34 Aspirin Ec 81 Mg Tabec PO 12/03/24 08:59 81 mg DAILY DAVE Administration Benztropine Mesylate 1 mg 11/02/24 21:00 11/02/24 21:07 Benztropine 0.5 Mg Tablet PO 12/02/24 20:59 1 mg HS DAVE Administration Bisacodyl 10 mg 11/02/24 18:26 Bisacodyl 5 Mg Tabec PO 12/02/24 18:25 QDAY PRN CONSTIPATION Protocol Fetzima( 0 ea 11/03/24 21:00 Levomilnacipran) 80 PO 12/03/24 20:59 Mg Capsule HS DAVE Dextrose 25 ml 11/02/24 19:17 Dextrose 50%-Water Inj 50 Ml Syringe IV 12/02/24 19:16 Q15MIN PRN BG 50-70 responsive npo pt Dextrose 50 ml 11/02/24 19:17 Dextrose 50%-Water Inj 50 Ml Syringe IV 12/02/24 19:16 Q15MIN PRN BG <50 OR BG <70 & pt unresponsive Divalproex Sodium 500 mg 11/02/24 22:00 11/03/24 05:[address] 500 Mg Tablet.Dr PO 12/02/24 21:59 500 mg TID DAVE Administration Glucagon 1 mg 11/02/24 19:17 Glucagon Inj 1 Mg Vial IM Q15MIN PRN BG <70, and no IV access Heparin Sodium (Porcine) 5,000 unit 11/02/24 21:00 11/03/24 08:34 Heparin Sod Inj 5000 Unit/Ml Vial SC 11/16/24 20:59 5,000 unit Q12HR DAVE Administration Ceftriaxone Sodium/Dextrose 1 gm in 50 mls @ 100 mls/hr 11/02/24 19:30 11/03/24 08:33 Rocephin/D5w 1gm Iv Premix IV 11/09/24 19:29 100 mls/hr QDAY DAVE Administration Insulin Human Lispro 0 unit 11/03/24 07:30 11/03/24 11:01 Insulin Lispro (Admelog) 1 Unit/0.01 Ml Unit SC 12/03/24 07:29 Not Given AC DAVE Protocol Melatonin 9 mg 11/02/24 18:34 Melatonin 3 Mg Tablet PO 12/02/24 20:59 HS PRN insomnia Non-Formulary Medication 80 mg 11/02/24 21:00 11/02/24 21:09 Levomilnacipran [Fetzima] PO 12/02/24 20:59 Not Given HS DAVE Risperidone 1 mg 11/03/24 09:00 11/03/24 08:34 Risperidone 1 Mg Tablet PO 12/03/24 08:59 1 mg QDAY DAVE Administration Sennosides 1 tab 11/02/24 18:26 Senna Tablet PO 12/02/24 18:25 QDAY PRN constipation Protocol Plan Ms. Basilia Muir is a 74 yo woman with a past medical history of type 2 diabetes, hyperlipidemia, hypertension, GERD, schizophrenia, depression, and developmental delay and recurrent UTIs presents to the ED for evaluation of altered mental status, no focal deficits and stroke work up negative, on CTX and fluids, with improvemnt in mental status and resolution of WU, PT consulted. #Sepsis 2/2 #UTI SOFA score 4 pt with hx of recurrent UTI, previously on nitrofuranotoin. presents with bacturia. pt unable to report LUTS, and pt did not demonstrate pain to palpation of suprapubic abdomen. pt is more well appearing today on exam Dx - UA with positive leuk esterase, and wbc - CXR unremarkable - MRSA nares pending - Bcx pending - Urine Cx pending Tx - APAP 650 PRN for fever - d/c Zosyn dosed in the ED - continue CTX 1gm IV QD (11/02- #Acute encephalopathy, likely toxic pt with developmental delay. presents with AMS per caregiver, stroke work up negative, no focal deficits. likely 2/2 sepsis, CTM pt answering questions more appropriatley and more awake and alert. per caregiver at bedside, pt not at baseline mental status yet, but markedly improved. Dx - NCHT negative Tx - treat uti, see above - Delirium precautions (avoid sedating meds) #Decreased Functional Status iso sepsis - pt previously ambulating with walker,however per caregiver who was out for the past 2 weeks, pt has remained in bed. Dx - PT eval ordered, appreciate recs #WU 2/2 sepsis- RESOLVED SOFA score 4 ddx pre vs intra vs post, favor prerenal given clinical presentation with UTI sepsis and resolution of Cr with fluids Cr downtrending 0.8 from 1.3 Dx - daily CMP Tx - cont maintence fluids with LR Chronic #T2DM pt previously taking metformin, no longer. - carb consistent diet - ISS #GERD - consider ppi #HTN - home losartan 50 mg - asprin 81 mg #HLD not on statin #Overactive bladder - holding home oxybutynin #Schizoprenia #Depression cont home medications - Melatonin 9 mg qhs - risperidone 1 mg - levomilnacipran 80 mg qhs - benztropine 1mg qhs Dispo: to nursing home (pt was previously ambulating with walker), pending uti cultures, blood cx, on iv abx given refractory to oral uti treatment with macrobid. Diet: Dyphagia 2- Carb consistent diet Lines: 65ml/hr LR Bowel Reg: Senna 1 tab qd prn VTE ppx: subq heparin q12 GI ppx: not indicated at this time. Code status:FULL Case discussed with my attending Dr. Mahad Denney MD PGY-1 Attending Provider Attestation/Addendum I, Janelle Tobin, DO, attest that I was physically present for the mcdonald portions of the service and evaluated the patient with the resident and I reviewed and discussed the case with the resident and agree with the resident's findings and plans of care as documented above Patient seen and evaluated this AM. Patient appears to be back at baseline and is much more interactive. She denies any pain or shortness of breath. She continues to have mild crusting of her eyes, will start artificial tears. Conjunctiva does not appear injected. Will f/u with Ucx, currently growing GNR. Anticipate DC within next 24h.
[2024-11-03] MEDS: RINGERS LACTATED 1000 ML 1,000 ML 60 ML IV (20:43)
[2024-11-03] MEDS: Artificial Tears 225 DROP/15 ML BTL BOTH EYES (20:44)
[2024-11-03] MEDS: FETZIMA 80 MG PO (20:45)
[2024-11-03] MEDS: BENZTROPINE 0.5 MG TABLET 1 MG PO (20:46)
[2024-11-04] VITALS: BP 139/60; PULSE 81; RESP 16; TEMP 36.3; O2SAT 94
[2024-11-04 04:00] VITALS: BP 165/82; PULSE 72; RESP 16; TEMP 36.6; O2SAT 93
[2024-11-04] MEDS: DIVALPROEX SOD DR 500 MG TABLET.DR PO (05:23)
[2024-11-04 06:15] LABS: Basophils # (Auto) 0.0 Thou/mm3 (0.0-0.2); Basophils % (Auto) 0 % (0-2.5); Eosinophils # (Auto) 0.1 Thou/mm3 (0.0-0.5); Eosinophils % (Auto) 1 % (0-10); Hematocrit 33.2 % (36.0-46.0); Hemoglobin 11.6 g/dL (12.0-16.0); Immature Granulocytes Auto 0.03 Thou/mm3 (0.00-0.00); Lymphocytes # (Auto) 1.0 Thou/mm3 (1.0-4.8); Lymphocytes % (Auto) 16 % (10-50); Mean Corpuscular HGB Conc 34.9 g/dl (31.0-37.0); Mean Corpuscular Hemoglobin 30.9 pg (25.0-35.0); Mean Corpuscular Volume 88 fL (80-100); Monocytes # (Auto) 0.9 Thou/mm3 (0.0-0.8); Monocytes % (Auto) 15 % (0-12); Neutrophils # (Auto) 4.0 Thou/mm3 (1.8-7.7); Neutrophils % (Auto) 67 % (37-80); Nucleated Red Blood Cell # 0.00 Thou/mm3 (0.00-0.00); Nucleated Red Blood Cell % 0 /100 WBC (0); Platelet Count 47 Thou/mm3 (140-440); RDW Standard Deviation 45.2 fL (36.4-46.3); Red Blood Count 3.76 Miln/mm3 (4.00-5.20); White Blood Count 6.0 Thou/mm3 (3.6-11.0)
[2024-11-04 06:27] LABS: Alanine Aminotransferase 28 U/L (10-49); Albumin, Serum 3.4 gm/dL (3.4-4.8); Albumin/Globulin Ratio 1.5 (1.2-2.2); Alkaline Phosphatase 71 U/L (46-116); Anion Gap 7 (7-16); Aspartate Amino Transferase 34 U/L (0-34); BUN/Creatinine Ratio 50 Ratio (12-20); Bilirubin,Total 0.3 mg/dL (0.3-1.2); Blood Urea Nitrogen 20 mg/dL (9-23); Calcium 9.3 mg/dL (8.3-10.6); Calcium (Corrected) 9.8 mg/dL (8.5-10.1); Carbon Dioxide 27.8 mMol/L (20.0-31.0); Chloride 107 mMol/L (98-107); Creatinine (Component) 0.4 mg/dL (0.6-1.3); Estimated Creatinine Clearance 102.2 mL/min (>60); Globulin 2.2 gm/dL (2.3-3.5); Glucose 83 mg/dL (74-106); Magnesium 1.8 mg/dL (1.6-2.6); Osmolality,Calculated 284 (275-295); Phosphorous 2.6 mg/dL (2.4-5.1); Potassium 4.4 mMol/L (3.4-5.1); Sodium 142 mMol/L (136-145); Total Protein 5.6 gm/dL (5.7-8.2); eGFR > 60 See Note
[2024-11-04 06:39] LABS: Path Review Blood Smear Sent to Pathologist; Slide Review Platelets confirmed
[2024-11-04 07:38] VITALS: BP 158/82; PULSE 72; RESP 16; TEMP 36.6; O2SAT 95
[2024-11-04 07:47] VITALS: PULSE 75; RESP 18; RESP 93
[2024-11-04] MEDS: HEPARIN SOD INJ 5000 UNIT/ML VIAL SC (09:36)
[2024-11-04] MEDS: Artificial Tears 225 DROP/15 ML BTL BOTH EYES (09:36)
[2024-11-04] MEDS: Magnesium Sulfate 2 GM Ivpb 2 GM/50 ML BAG IV (09:36)
[2024-11-04] MEDS: ASPIRIN EC 81 MG TABEC PO (09:36)
[2024-11-04] MEDS: LEVOFLOXACIN 250 MG TABLET PO ×2 (09:38→09:49)
--- NOTE | 2024-11-04 10:41 | PC.SS ---
Addendum entered by MONIKA Tapia 11/04/24 11:17: Received call from half-way- Amy [phone] who informed her staff can transport the patient at 1pm this afternoon. RN Ewa is aware. Original Note: SS follow up: Attempted contact with retirement contact-Amy to notify that patient has d/c orders for today. No answer and voicemail provided. Contacted patient's medical case manager with [facility] to inform her that patient has d/c orders, she informed she would contact Amy, the retirement contact to make aware as well.
[2024-11-04 11:59] VITALS: BP 141/87; PULSE 80; RESP 17; TEMP 36.6; O2SAT 96
--- NOTE | 2024-11-04 19:21 | ESDS_ITS ---
<Statement entered by Janelle Tobin DO - 11/05/24 08:14> I, Janelle Tobin DO, attest that I was physically present for the mcdonald portions of the service and evaluated the patient with the resident and I reviewed and discussed the case with the resident and agree with the resident's findings and plans of care as documented above <Statement entered by Oleg Mar MD - 11/04/24 20:45> Patient seen and examined at bedside, no acute overnight events. I discussed and supervised with the diversity intern physician who took care of this patient. I personally saw and examined the patient. I agree with most of the assessment and plan. Plan of care discussed with attending Dr. Dr. Tobin. Oleg Mar MD PGY-2 Planned Discharge Date 11/04/24 DS: Providers Provider Date of admission: 11/02/24 18:26 Primary care physician: Gera Seay MD Admitting Provider: Janelle Tobin DO Attending Provider on Admission: Janelle Tobin DO Consults: 11/03/24 00:21 Referral Registered Dietitian Routine Comment: 11/03/24 11:25 Referral Physical Therapy Routine Comment: Physician Instructions: Instructions: likely discharge tomorrow Attending Provider on DC: Dr. Tobin Discharging Provider: RESIDENT Edilia DS: Diagnosis Problem List Completed Was Problem List Reviewed/Reconciled?: Yes Hospital Course Hospital Course Hospital course: Ms. Basilia Muir is a 74 yo woman with a past medical history of type 2 diabetes, hyperlipidemia, hypertension, GERD, schizophrenia, depression, and developmental delay and recurrent UTIs presents to the ED for evaluation of altered mental status, likely secondary to UTI. Patient was started on ceftriaxone then transition to levofloxacin once urine cultures resulted (growing E. coli). Patient exhibited evidence of end organ damage secondary to sepsis evidenced by acute encephalopathy and pre renal WU. patient improved wit h fluid resuscitation and antibiotics. Physical therapy consulted given caregiver history of decreased mobility over the past 2 weeks. Patient discussed charged with oral antibiotics for UTI. On the hospital patient was noted to have crusting around the eyes was treated with moist warm compresses and artificial tears as needed. #Sepsis 2/2 #UTI #Acute encephalopathy, likely toxic #Decreased Functional Status iso sepsis #WU 2/2 sepsis- RESOLVED #T2DM #GERD #HTN #HLD #Overactive bladder #Schizoprenia #Depression Discharge plan: You have been started on the following medications: -levofloxacin 250 mg daily Please continue taking all other meds as previously prescribed. Please follow up with your primary doctor in 7-10 days. Please return to the ED if you develop new or worsening symptoms. Case discussed with my senior resident Dr. Mar Case discussed with my attending Dr. Mahad Denney MD PGY-1 Time Spent with Patient Time attestation: Total time spent providing and/or coordinating discharge services: Time spent: Greater than 30 minutes Exam Vital Signs Temp Pulse Resp BP Pulse Ox O2 Del Method 97.9 F 80 17 141/87 H 96 Room Air 11/04/24 11:59 11/04/24 11:59 11/04/24 11:59 11/04/24 11:59 11/04/24 11:59 11/04/24 11:59 Narrative Exam GENERAL: no acute distress, comfortably laying in bed smiling HEENT: Head AT/ NC. Mucous membranes dry. PERRL. nl conjuntiva, some crusting and weeping around eyes CARDIOVASCULAR: RRR. Normal S1/S2, No m/r/g. trace bilateral edema RESPIRATORY: CTAB. No wheezing, rhonchi, crackles. GASTROINTESTINAL: Abdomen soft, non tender no palpable masses. Bowel sounds present, no suprapubic pain on palpation MUSCULOSKELETAL:? No cyanosis or edema, no visible joint swelling, Left Lower extremity tender to palpation NEUROLOGICAL: oriented to self and place. CN II-XII grossly intact. No focal deficits. Moving extrem 4x. able to follow basic commands. pt responding more appropriately to questions. PSYCHIATRIC: Awake and alert, not agitated, normal mood and affect. SKIN: No obvious rashes, no jaundice, decrease skin turg Discharge Plan Plan Patient Disposition: HOME (Self Care) Patient condition on transfer: Stable Care Plan Goals: You have been started on the following medications: -levofloxacin 250 mg daily, Please continue taking all other meds as previously prescribed. Please follow up with your primary doctor in 7-10 days. Please return to the ED if you develop new or worsening symptoms. Prescriptions/Referrals Prescriptions/Med Rec: New levofloxacin 250 mg Tablet 250 mg PO QDAY 3 Days Qty: 3 0RF Continued ascorbic acid (vitamin C) [Vitamin C] 500 MG tablet 500 mg PO BID Qty: 0 aspirin 81 mg Tablet,Delayed Release (Dr/Ec) 1 tab PO DAILY Rx Instructions: for cardio protection simvastatin 20 mg tablet 20 mg PO QPM docusate sodium 100 mg capsule 100 mg PO BID diclofenac sodium 75 mg tablet,delayed release (DR/EC) 75 mg PO QDAY Rx Instructions: for pain/inflammation Fetzima 80 mg capsule,extended release 24 hr 80 mg PO HS Rx Instructions: for behavior disorder oxybutynin chloride 15 mg tablet extended release 24hr 15 mg PO DAILY risperidone 1 mg tablet 1 mg PO BID benztropine 1 mg tablet 1 mg PO Q12HR melatonin 10 mg capsule 10 mg PO HS PRN (Reason: sleep) losartan 50 mg tablet 50 mg PO DAILY divalproex 500 mg tablet,delayed release (DR/EC) 500 mg PO TID Referrals: Gera Seay MD [Primary Care Provider] - Patient/Caregiver Discharge Instructions Education Materials: ED Confusion Print Language: Rwandan Stand Alone Forms: Malika Award Info., Patient Portal Info Letter Discharge Order Discharge Orders: Discharge (Routine); Ordered 11/04/24 Ordered By: John Paul Mcnamara Quality Discharge Quality Measures VTE prophylaxis and sepsis
== END 2024-11-04 13:52 | disposition home or self-care (01) | DRG 871 ==
LOC: SERX 17:59 → SERHOLD 18:34 → S3SX 23:11
PROVIDERS: Physician Assistant; Admitting Provider Internal Medicine; Emergency Provider Family Medicine; PCP Family Medicine; Visit Provider Internal Medicine
DX: A41.51 Sepsis due to Escherichia coli [E. coli] (principal); G92.9 Unspecified toxic encephalopathy; G93.41 Metabolic encephalopathy; N39.0 Urinary tract infection, site not specified; N17.9 Acute kidney failure, unspecified; E11.9 Type 2 diabetes mellitus without complications; E78.5 Hyperlipidemia, unspecified; I10 Essential (primary) hypertension; K21.9 Gastro-esophageal reflux disease without esophagitis; F32.A Depression, unspecified; E86.0 Dehydration; F20.9 Schizophrenia, unspecified; Z87.440 Personal history of urinary (tract) infections; D69.6 Thrombocytopenia, unspecified; N32.81 Overactive bladder; Z79.82 Long term (current) use of aspirin
CPT/HCPCS: 36415; 70450; 71045; 80053; 80061; 81001; 83036; 83605; 83690; 83735; 84100; 84145; 84484; 85025; 85610; 85730; 87040; 87077; 87081; 87086; 87186; 97162; J0696; J1644; J2543; J3475; J7030; J7120; A9270

== ENCOUNTER 2025-01-11 06:45 | Inpatient (IN) | payer MEDICARE, MEDICAID, SELFPAY ==
[2025-01-11] VITALS (14 sets, daily range): BP systolic 97–131; BP diastolic 47–85; PULSE 71–129; RESP 14–42; TEMP 36.7–39.9; O2SAT 80–99; BMI 29.9
--- NOTE | 2025-01-11 06:48 | PD.EDFEVER ---
ED Fever RME/HPI General Chief Complaint: Altered Mental Status Stated Complaint: ALTERED MENTAL STATUS Time Seen by Provider: 01/11/25 06:48 Arrival date/time: 01/11/25 06:45 RME / HPI RME / HPI Narrative: 74 yo female patient brought in altered from assisted living, GCS 10 per EMS with last known well last night. Patient is awake and alert however not answering questions, tachypneic, and skin is hot. Temp 103 axillary. Sepsis alert called. Per report patient recently prescribed antibiotics for UTI but has not started medication yet. Related Data Home Medications ?Medication ?Instructions ?Recorded ?Confirmed ascorbic acid (vitamin C) 500 mg 500 mg PO BID #0 tabs 10/21/14 11/03/24 tablet (Vitamin C) aspirin 81 mg tablet,delayed 1 tab PO DAILY 01/01/18 11/03/24 release diclofenac sodium 75 mg 75 mg PO QDAY 09/06/21 11/03/24 tablet,delayed release docusate sodium 100 mg capsule 100 mg PO BID 09/06/21 11/03/24 levomilnacipran 80 mg capsule,24 80 mg PO HS 09/06/21 11/03/24 hr,extended release (Fetzima) simvastatin 20 mg tablet 20 mg PO QPM 09/06/21 11/03/24 divalproex 500 mg tablet,delayed 500 mg PO TID 06/16/23 11/03/24 release losartan 50 mg tablet 50 mg PO DAILY 06/16/23 11/03/24 benztropine 1 mg tablet 1 mg PO Q12HR 11/03/24 11/03/24 melatonin 10 mg capsule 10 mg PO HS PRN sleep 11/03/24 11/03/24 oxybutynin chloride 15 mg 15 mg PO DAILY 11/03/24 11/03/24 tablet,extended release 24 hr risperidone 1 mg tablet 1 mg PO BID 11/03/24 11/03/24 Allergies Allergy/AdvReac Type Severity Reaction Status Date / Time No Known Allergies Allergy Verified 11/02/24 10:43 Review of Systems Review of Systems ROS Unobtainable: unobtainable due to mental status Past Medical History Past Medical History CARDIAC: Positive Cardiac Disorders, Hypercholesterolemia and Hypertension GASTROINTESTINAL: Positive Irritable Bowel and Gastroesophageal Reflux Disease ENDOCRINE: Positive Endocrine Disorders and Diabetes Mellitus Type 2 PSYCHO/SOCIAL: Positive Schizophrenia, Bipolar Disorder, Depression and Behavior Problems OTHER HISTORY: Positive Developmental Delay and Falls Family History FAMILY HISTORY: Negative Family Psychiatric Problems, Family Respiratory Disorders, Family Cardiac Disorders or Family Gastrointestinal Problems Surgical History SURGICAL: Negative Cardiac Surgery Social History SMOKING STATUS: Unknown if ever smoked SECOND HAND EXPOSURE: No SUBSTANCE USE: does not use Physical Exam Narrative Physical exam: GENERAL APPEARANCE: Awake, alert however not answering questions, tachypneic, mildly diaphoretic, skin is hot to touch, axillary temperature 103F. HEENT: Normocephalic, atraumatic; pupils equal, round, reactive to light; EOMI; mucous membranes pink, moist; oropharynx clear NECK: Supple LUNGS: CTABL; no wheezes, no rales, no rhonchi HEART: Regular rate, regular rhythm; normal S1, S2; no murmurs ABDOMEN: non distended; normal BS; soft, no tenderness, no guarding, no rebound; no masses, no organomegaly, no hernia BACK: no CVA tenderness EXTREMITIES: atraumatic; no edema NEUROLOGIC: awake; alert and oriented x4; cranial nerves II-XII grossly intact; no focal sensory or motor deficits PSYCHIATRIC: appropriate mood and affect SKIN: hot to touch, mildly diaphoretic, normal color; no rashes Course Course Course Narrative: 1027: I spoke with hospitalist team A regarding admission. Quality Measures Current suspected stage: sepsis Possible source: genitourinary Blood cultures ordered: completed in ED Antibiotic ordered: Yes Pertinent labs: 01/11/25 07:23 Lactic Acid 1.1 mMol/L (0.4-2.0) Procalcitonin 5.42 H ng/ml (0.0-0.49) sepsis Orders Category Date Time Status Bedside COVID-19 Antigen Test NOW Care 01/11/25 06:56 Active Bedside Influenza A&B Antigen Test NOW Care 01/11/25 06:56 Completed Clinical Coordinator NOW Care 01/11/25 06:51 Active Cooling Measures NEEDED Care 01/11/25 06:55 Active EKG (ED ONLY) *Do not use* NOW Care 01/11/25 06:51 Completed Urinary Catheter QS Care 01/11/25 09:05 Active EKG (ED Only) Stat Exams 01/11/25 06:51 Draft XR chest 1V portable Stat Exams 01/11/25 06:51 Completed Amylase Stat Lab 01/11/25 07:23 Completed B-Type Natriuretic Peptide Stat Lab 01/11/25 07:23 Completed Blood Culture (Lab) Stat Lab 01/11/25 07:18 Received CBC Stat Lab 01/11/25 07:23 Completed Comprehensive Metabolic Panel Stat Lab 01/11/25 07:23 Completed Lactate (Lactic Acid) Stat Lab 01/11/25 07:23 Completed Magnesium Stat Lab 01/11/25 07:23 Completed Partial Thromboplastin Time Stat Lab 01/11/25 07:23 Completed Procalcitonin Stat Lab 01/11/25 07:23 Completed Prothrombin Time with INR Stat Lab 01/11/25 07:23 Completed Troponin I Stat Lab 01/11/25 07:23 Completed Urinalysis Stat Lab 01/11/25 09:00 Completed Urine Culture Stat Lab 01/11/25 09:00 Received Acetaminophen Ivpb [Ofirmev Inj] Med 01/11/25 06:55 Discontinued 1,000 mg in 100 ml IV X1 POTASSIUM CHL 10 mEq IVPB [Kcl Ivpb] Med 01/11/25 08:47 Active 10 meq in 100 ml IV Q1H Sodium Chloride 0.9% 1000 ml [Ns] 1,000 ml Med 01/11/25 06:55 Discontinued IV 999 mls/hr cefTRIAXone/D5w 1gm IV premix [Rocephin/D5w 1gm IV Med 01/11/25 07:09 Discontinued premix] 1 gm in 50 ml IV X1 Vital Signs Vital signs: Vital Signs Temperature 103 F H 01/11/25 06:49 Pulse Rate 129 H 01/11/25 06:49 Respiratory Rate 22 H 01/11/25 06:49 Blood Pressure 130/71 01/11/25 06:49 Pulse Oximetry (%) 98 01/11/25 06:49 Oxygen Delivery Method Room Air 01/11/25 06:49 Pulse ox is 98% on room air which is adequate. Fever MDM Narrative MDM Narrative:: Lizy Nicholson am scribing for and in the presence of Dr. Henao. Patient data External records reviewed:: [facility] previous records (Reviewed previous urine culture results from 11/15/2024, E. coli sensitive to cephalosporins) Clinical information provided by:: EMS Social determinants that could affect healthcare access:: housing ([facility] resident ) Patient has the following chronic illnesses:: developmental delay, hypertension, diabetes, hyperlipidemia, GERD, schizophrenia, recurrent UTIs How is presenting disease/condition affected by chronic disease/condition?: exacerbated by Evaluation data The following diagnostics were reviewed and interpreted by me:: EKG tracing(s) (Sinus tachycardia rate of 126, ST depression aVL, lead I; ST elevation lead III, Q wave lead III, aVF; possible rate based ischemia) Lab and/or radiology exams considered but not ordered:: None Interpretation Summary: Ordering Physician: Claudia Henao MD Date of Service: 01/11/25 Procedure(s): XR chest 1V portable Accession Number(s): [id number] cc: Gera Seay MD; Jude Woody MD; Claudia Henao MD~ Examination: AP chest single view Technique one AP portable upright chest single view Date and time: January 11, 2025, 0724 hrs., Comparison November 02, 2024 Indications: Acute chest pain today. Findings: Mild prominence of ventricle Mild vascular congestion. No lobar pneumonia or trudy pulmonary edema Prominent osteopenia Impression: Mild vascular congestion Dictated By: Jude Woody MD Signed By: <Electronically signed by Jude Woody MD in OV> 01/11/25 0749 Medications / Prescriptions Medications or Prescriptions considered but not ordered:: None Medication administrations:: Medication Administration History Potassium Chloride (Kcl Ivpb) 10 meq in 100 mls @ 100 mls/hr IV Q1H DAVE Stop: 01/11/25 12:46 Last Admin: 01/11/25 11:00 Dose: 100 mls/hr Documented By: Infusion: 01/11/25 10:32 Dose: Infused Documented By: Admin: 01/11/25 09:32 Dose: 100 mls/hr Documented By: RUMA Discontinued Medications Acetaminophen (Ofirmev Inj) 1,000 mg in 100 mls @ 250 mls/hr IV X1 ONE Stop: 01/11/25 07:18 Last Infusion: 01/11/25 08:05 Dose: Infused Documented By: Admin: 01/11/25 07:41 Dose: 250 mls/hr Documented By: RUMA Sodium Chloride (Ns) 1,000 mls @ 999 mls/hr IV .Q1H1M ONE Stop: 01/11/25 07:55 Last Infusion: 01/11/25 08:50 Dose: Infused Documented By: Admin: 01/11/25 07:41 Dose: 999 mls/hr Documented By: RUMA Ceftriaxone Sodium/Dextrose (Rocephin/D5w 1gm Iv Premix) 1 gm in 50 mls @ 100 mls/hr IV X1 ONE Stop: 01/11/25 07:38 Last Infusion: 01/11/25 08:15 Dose: Infused Documented By: Admin: 01/11/25 07:45 Dose: 100 mls/hr Documented By: RUMA See above Consultations Consultation(s) initiated? (list below): No Diagnosis Fever Differential Diagnosis: cellulitis, fever of unknown origin, community acquired pneumonia, pyelonephritis, viral infection, sepsis and influenza Most likely diagnosis given after review of the tests above:: UTI Sepsis Admission Indicated Admission indicated?: indicated Admission Request Was there a request for admission?: Yes Admission Attestation Admission request attestation: Discussed case with [] from Hospitalist service regarding admission. Discussed patients ED course, exam findings, labs, and radiology results. The Hospitalist [agrees,declines] to accept the patient for admission. Disposition Plan Disposition Plan: Admit Critical Care Time Critical Care Time Critical Care Time: Yes Total Critical Care Time (min.): 35 Attestation: The high probability of sudden, clinically significant deterioration in the patient's condition required the highest level of my preparedness to intervene urgently. The services I provided to this patient were to treat and/or prevent clinically significant deterioration. Services included the following: chart data review, reviewing nursing notes and/or old charts, documentation time, application packaging consultant collaboration regarding findings and treatment options, medication orders and management, direct patient care, vital sign assessments and ordering, interpreting and reviewing diagnostic studies and lab tests. Aggregate critical care time includes only time during which I was engaged in work directly related to the patient's care, as described above, whether at bedside or elsewhere in the Emergency Department. It did not include time spent performing other reported procedures or the services of residents, students, nurses or physician assistants. Discharge Plan Plan Patient Disposition: Admit Acute Care w/in Hospital Prescriptions/Referrals Prescriptions/Med Rec: No Action ascorbic acid (vitamin C) [Vitamin C] 500 MG tablet 500 mg PO BID Qty: 0 aspirin 81 mg Tablet,Delayed Release (Dr/Ec) 1 tab PO DAILY Rx Instructions: for cardio protection simvastatin 20 mg tablet 20 mg PO QPM docusate sodium 100 mg capsule 100 mg PO BID diclofenac sodium 75 mg tablet,delayed release (DR/EC) 75 mg PO QDAY Rx Instructions: for pain/inflammation Fetzima 80 mg capsule,extended release 24 hr 80 mg PO HS Rx Instructions: for behavior disorder oxybutynin chloride 15 mg tablet extended release 24hr 15 mg PO DAILY risperidone 1 mg tablet 1 mg PO BID benztropine 1 mg tablet 1 mg PO Q12HR melatonin 10 mg capsule 10 mg PO HS PRN (Reason: sleep) losartan 50 mg tablet 50 mg PO DAILY divalproex 500 mg tablet,delayed release (DR/EC) 500 mg PO TID Referrals: Gera Seay MD [Primary Care Provider, Family Practice] - In 1 week Problem List Clinical Impression: UTI (urinary tract infection), Sepsis Patient/Caregiver Discharge Instructions Print Language: Chinese Stand Alone Forms: Malika Award Info., Patient Portal Info Letter
--- NOTE | 2025-01-11 06:51 | EKG_ITS ---
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: : 1950 Requested By: Claudia Marcum Order Number: [id number] Reading MD: Claudia Marcum Measurements Intervals [place] Rate: 126 P: 24 IN: 145 QRS: -13 QRSD: 96 T: 145 QT: 335 QTc: 486 Interpretive Statements SINUS TACHYCARDIA INFERIOR MYOCARDIAL INFARCTION , PROBABLY OLD [40+ ms Q WAVE AND/OR ST/T ABNORMALITY IN II/aVF] MODERATE T-WAVE ABNORMALITY, CONSIDER LATERAL ISCHEMIA [-0.1+ mV T-WAVE IN I/aVL/V5/V6] Compared to ECG 11/02/2024 18:32:03 T-wave abnormality now present Possible ischemia now present Sinus rhythm no longer present Myocardial infarct finding still present /store/S0/[id number]/ecg/[id number].pdf
--- NOTE | 2025-01-11 06:51 | XR_ITS ---
Examination: AP chest single view Technique one AP portable upright chest single view Date and time: January 11, 2025, 0724 hrs., Comparison November 02, 2024 Indications: Acute chest pain today. Findings: Mild prominence of ventricle Mild vascular congestion. No lobar pneumonia or trudy pulmonary edema Prominent osteopenia Impression: Mild vascular congestion
[2025-01-11 07:37] LABS: Lactate (Lactic Acid) 1.1 mMol/L (0.4-2.0)
[2025-01-11] MEDS: SODIUM CHLORIDE 0.9% 1000 ML 1,000 ML 999 ML IV (07:41)
[2025-01-11] MEDS: ACETAMINOPHEN IVPB 1,000 MG/100 ML VIAL 250 MG IV (07:41)
[2025-01-11 07:44] LABS: Basophils # (Auto) 0.0 Thou/mm3 (0.0-0.2); Basophils % (Auto) 0 % (0-2.5); Eosinophils # (Auto) 0.0 Thou/mm3 (0.0-0.5); Eosinophils % (Auto) 0 % (0-10); Hematocrit 40.1 % (36.0-46.0); Hemoglobin 13.3 g/dL (12.0-16.0); Immature Granulocytes Auto 0.04 Thou/mm3 (0.00-0.00); Lymphocytes # (Auto) 0.3 Thou/mm3 (1.0-4.8); Lymphocytes % (Auto) 4 % (10-50); Mean Corpuscular HGB Conc 33.2 g/dl (31.0-37.0); Mean Corpuscular Hemoglobin 30.5 pg (25.0-35.0); Mean Corpuscular Volume 92 fL (80-100); Monocytes # (Auto) 0.9 Thou/mm3 (0.0-0.8); Monocytes % (Auto) 12 % (0-12); Neutrophils # (Auto) 6.1 Thou/mm3 (1.8-7.7); Neutrophils % (Auto) 83 % (37-80); Nucleated Red Blood Cell # 0.00 Thou/mm3 (0.00-0.00); Nucleated Red Blood Cell % 0 /100 WBC (0); RDW Standard Deviation 50.2 fL (36.4-46.3); Red Blood Count 4.36 Miln/mm3 (4.00-5.20); White Blood Count 7.3 Thou/mm3 (3.6-11.0)
[2025-01-11 07:45] LABS: Platelet Count 74 Thou/mm3 (140-440)
[2025-01-11] MEDS: cefTRIAXone/D5w 1gm IV premix 1 GM/50 ML BAG IV (07:45)
[2025-01-11 07:53] LABS: B-Type Natriuretic Peptide 363 pg/mL (0-100)
[2025-01-11 08:02] LABS: Alanine Aminotransferase 13 U/L (10-49); Albumin, Serum 3.8 gm/dL (3.4-4.8); Albumin/Globulin Ratio 1.7 (1.2-2.2); Alkaline Phosphatase 71 U/L (46-116); Amylase < 20 U/L (30-118); Anion Gap 12 (7-16); Aspartate Amino Transferase 16 U/L (0-34); BUN/Creatinine Ratio 26 Ratio (12-20); Bilirubin,Total 0.5 mg/dL (0.3-1.2); Blood Urea Nitrogen 23 mg/dL (9-23); Calcium 9.3 mg/dL (8.3-10.6); Calcium (Corrected) 9.5 mg/dL (8.5-10.1); Carbon Dioxide 24.4 mMol/L (20.0-31.0); Chloride 107 mMol/L (98-107); Creatinine (Component) 0.9 mg/dL (0.6-1.3); Estimated Creatinine Clearance 58.8 mL/min (>60); Globulin 2.3 gm/dL (2.3-3.5); Glucose 164 mg/dL (74-106); Magnesium 1.9 mg/dL (1.6-2.6); Osmolality,Calculated 292 (275-295); Potassium 3.3 mMol/L (3.4-5.1); Procalcitonin 5.42 ng/ml (0.0-0.49); Sodium 143 mMol/L (136-145); Total Protein 6.1 gm/dL (5.7-8.2); eGFR > 60 See Note
[2025-01-11 08:06] LABS: Troponin I 0.076 ng/mL (0.0-0.045)
[2025-01-11 08:20] LABS: INR 1.1 (0.9-1.3); Partial Thromboplastin Time 28.9 Seconds (22.0-36.0); Prothrombin Time 12.0 Seconds (9.0-12.2)
--- NOTE | 2025-01-11 09:08 | PC.NURSE ---
Kateryna Garibay states patient lives at [facility] and upon checking on patient this am, patient having increased WOB and she was not responding to careprovider. Currently, opening her eyes more frequently, tracking me with her eyes, making incomprehensible sounds, skin remains hot, however, temp. decreased to 101.7 rectally. Call light within reach.
[2025-01-11 09:10] LABS: Slide Review Platelets confirmed
[2025-01-11 09:12] LABS: Collection Type, Urine Catheter
[2025-01-11] MEDS: POTASSIUM CHL 10 mEq IVPB 10 MEQ/100 ML BAG 100 MEQ IV ×4 (09:32→13:28)
[2025-01-11 10:03] LABS: Bacteria,Urine 4+; Bilirubin,Urine Negative (Negative); Blood,Urine 2+ (Negative); Color,Urine Yellow (Lt Yel-Yel); Glucose, Urine Negative (Negative); Ketones,Urine Trace (Negative); Leukocyte Esterase,Urine Positive (Negative); Nitrite,Urine Negative (Negative); PH,Urine 6.5 (5.0-7.0); Protein,Urine 1+ (Neg - Trace); RBC,Urine 94 /hpf (0-3); Specific Gravity,Urine 1.021 (1.001-1.035); Squamous Epithelial Cell,Urine 2 /hpf (0-5); Transitional Epi Cells,Urine 3 /hpf (0-5); Urobilinogen,Urine 6.0 mg/dL (0.0-1.0); WBC,Urine 3778 /hpf (0-5)
[2025-01-11 10:11] LABS: Clarity,Urine Turbid (Clear/Hazy)
--- NOTE | 2025-01-11 11:36 | ESHP_ITS ---
<Statement entered by Rosalind Valenzuela MD - 01/11/25 15:05> Ms. Basilia Muir is a 74 yo woman with a past medical history signficiant for type 2 diabetes, hyperlipidemia, hypertension, GERD, schizophrenia, depression, and developmental delay and recurrent UTIs who presented to the ED for AMS and foul smelling urine and admitted for acute encephalopathy and sepsis 2/2 UTI. Patient meets sepsis criteria based on high SOFA score, and end organ damage noted in both her elevated troponin, decreased GCS from her baseline, confusion, and SOB. Most of the patient's history was obtained from patient's pull through hooker and previous H&P note. Patient will be on IVF, IV Antibiotics, will trend her troponin, and have speech eval see patient tomorrow. Patient will remain NPO for now as patient is still altered and not safe for PO medication administration. Will also continue to wean her O2 level as tolerated, currently on 5-6L NC, patient's baseline is RA. I discussed with and supervised the communications intern physician who took care of this patient. I personally saw and examined the patient and discussed the assessment and plan with the entire medicine team, including my attending Dr. Kulkarni, I agree with most of the assessment and plan as documented below Rosalind Valenzuela M.D. PGY-3 Documentation for date of: 01/11/25 HPI History of Present Illness Chief complaint: UTI with Acute encephalopathy History of present illness: Ms. Basilia Muir is a 74 yo woman with a past medical history of type 2 diabetes, hyperlipidemia, hypertension, GERD, schizophrenia, depression, and developmental delay and recurrent UTIs presents to the ED for evaluation of altered mental status and foul smelling urine. History was obtained via her patient care secretary at bedside (Conrad), who states that patient was last at her baseline on Saturday01/08/2025 (pt typically oriented to self and , and able to answer questions appropriatly about how she is feeling) she feed herself at baseline. Care givers noted that she had increased fatigue on Saturday. Her urine was noted to be foul smelling and had UA taken that was positive for UTI, but had not yet started on antibiotics. ROS endorses AMS denies fevers, chills, abdominal pain, nausea, vomiting, dysuria, increased urinary frequency. SH [facility], able to feed herself and ambulate with a walker and is usually oriented to self. ED course: VSS, Febrile 103 HR 104, BP128/68, 97% on 6L NC Pertient Labs: WBC 7.3, procalcitonin 5.42, BNP 363, troponin slightly elevated 0.076 (trending) UA obtained with catheterization with 2+ blood, 1+ protein, turbid, positive leukocyte esterase and WBC 3778, . UCx pending. Blood cx pending CXR Mild vascular congestion Tx Ceftriaxone 1 gm x1 APAP 1000mg x1 1L NS 30 ME IV KCl Exam Vital Signs Temp Pulse Resp BP Pulse Ox O2 Del Method O2 Flow Rate 100.6 F H 104 H 35 H 129/68 97 Nasal Cannula 6 01/11/25 10:01/11/25 10:01/11/25 10:27 01/11/25 10:27 01/11/25 10:27 01/11/25 10:01/11/25 10:27 Narrative Exam GENERAL:in moderate distress. tearful. HEENT: Head AT/ NC. Mucous membranes dry. PERRL. nl conjuntiva, crusting and weeping around eyes CARDIOVASCULAR: RRR. Normal S1/S2, No m/r/g. trace bilateral edema RESPIRATORY: CTAB. No wheezing, rhonchi, crackles. GASTROINTESTINAL: Abdomen soft, non tender no palpable masses. Bowel sounds present, no suprapubic pain on palpation MUSCULOSKELETAL:? No cyanosis or edema, no visible joint swelling, Left Lower extremity tender to palpation NEUROLOGICAL: CN II-XII not assessed unable to follow basic commands. pt does not respond appropriately to questions. PSYCHIATRIC: Awake and alert, not agitated, normal mood and affect. SKIN: red peticheia, non blanching on BUE, no jaundice, decrease skin turgor Results: Labs 01/11/25 07:23 01/11/25 07:23 Labs: Short CBC 01/11/25 Range/Units 07:23 WBC 7.3 (3.6-11.0) Thou/mm3 Hgb 13.3 (12.0-16.0) g/dL Hct 40.1 (36.0-46.0) % Plt Count 74 L (140-440) Thou/mm3 BMP 01/11/25 07:23 Sodium 143 Potassium 3.3 L Chloride 107 Carbon Dioxide 24.4 BUN 23 Creatinine 0.9 Glucose 164 H Calcium 9.3 Cardiac Enzymes 01/11/25 Range/Units 07:23 Troponin I 0.076 H* (0.0-0.045) ng/mL Liver Function 01/11/25 Range/Units 07:23 Total Bilirubin 0.5 (0.3-1.2) mg/dL AST 16 (0-34) U/L ALT 13 (10-49) U/L Alkaline Phosphatase 71 (46-116) U/L Albumin 3.8 (3.4-4.8) gm/dL Urine 01/11/25 Range/Units 09:00 Urine Color Yellow (Lt Yel-Yel) Urine Clarity Turbid A (Clear/Hazy) Urine pH 6.5 (5.0-7.0) Ur Specific [place] 1.021 (1.001-1.035) Urine Protein 1+ A (Neg - Trace) Urine Glucose (UA) Negative (Negative) Quality Measures Quality Measures sepsis Current suspected stage: sepsis Possible source: genitourinary Blood cultures ordered: completed in ED Antibiotic ordered: Yes Advance care planning discussed with:: patient and other (patient care secretary ) Medications Home Medications and Allergies Home Medications ?Medication ?Instructions ?Recorded ?Confirmed ?Type ascorbic acid (vitamin C) 500 mg 500 mg PO BID #0 tabs 10/21/14 11/03/24 History tablet (Vitamin C) aspirin 81 mg tablet,delayed 1 tab PO DAILY 01/01/18 0 11/03/24 History release diclofenac sodium 75 mg 75 mg PO QDAY 09/06/2111/03 History tablet,delayed release docusate sodium 100 mg capsule 100 mg PO BID 09/06/21 11/03/24 History levomilnacipran 80 mg capsule,24 80 mg PO HS 09/06/21 11/03/24 History hr,extended release (Fetzima) simvastatin 20 mg tablet 20 mg PO QPM 09/06/21 History divalproex 500 mg tablet,delayed 500 mg PO TID 4 11/03/24 History release losartan 50 mg tablet 50 mg PO DAILY 06/16/2312/21 History benztropine 1 mg tablet 1 mg PO Q12HR 11/03/2411/03 History melatonin 10 mg capsule 10 mg PO HS PRN sleep 11/03/24 History oxybutynin chloride 15 mg 15 mg PO DAILY 11/03/2412/21 History tablet,extended release 24 hr risperidone 1 mg tablet 1 mg PO BID 11/03/24 5 History Allergies Allergy/AdvReac Type Severity Reaction Status Date / Time No Known Allergies Allergy Verified 11/02/24 10:43 Visit Medications Acetaminophen (Acetaminophen 325 Mg Tablet) 650 mg PO Q6H PRN PRN Reason: PAIN SCALE 1-3 (mild Stop: 02/10/25 11:28 Potassium Chloride (Kcl Ivpb) 10 meq in 100 mls @ 100 mls/hr IV Q1H DAVE Stop: 01/11/25 12:46 Last Admin: 01/11/25 11:00 Dose: 100 mls/hr Lactated Ringer's (Lactated Ringers) 1,000 mls @ 85 mls/hr IV .[id number] DAVE Stop: 02/10/25 11:34 Ondansetron HCl (Ondansetron Inj 2 Mg/Ml Inj 2 Ml) 4 mg IVP Q6H PRN; Protocol PRN Reason: NAUSEA OR VOMITING Stop: 02/10/25 11:28 Pantoprazole Sodium (Pantoprazole Inj 40 Mg Vial) 40 mg IVP QDAY DAVE Stop: 02/11/25 08:59 Discontinued Medications Acetaminophen (Ofirmev Inj) 1,000 mg in 100 mls @ 250 mls/hr IV X1 ONE Stop: 01/11/25 07:18 Last Infusion: 01/11/25 08:05 Dose: Infused Sodium Chloride (Ns) 1,000 mls @ 999 mls/hr IV .Q1H1M ONE Stop: 01/11/25 07:55 Last Infusion: 01/11/25 08:50 Dose: Infused Ceftriaxone Sodium/Dextrose (Rocephin/D5w 1gm Iv Premix) 1 gm in 50 mls @ 100 mls/hr IV X1 ONE Stop: 01/11/25 07:38 Last Infusion: 01/11/25 08:15 Dose: Infused Assessment & Plan Plan Ms. Basilia Muir is a 74 yo woman with a past medical history of type 2 diabetes, hyperlipidemia, hypertension, GERD, schizophrenia, depression, and developmental delay and recurrent UTIs presents to the ED for evaluation of altered mental status, received Ceftriaxone in the ED, will continue with IV abx. Acute Hypoxic Respiratory Failure 2/2 Sepsis 2/2 UTI SOFA score 6 (glassgow coma 10-12, Plt 74 ) Febrile 103 on admission, on 6L NC satting 97% pt with hx of recurrent UTI,has previously been on nitrofuranotoin and failing oupatient treatment. presents with bacturia. pt unable to report LUTS, and pt did not demonstrate pain to palpation of suprapubic abdomen. overseamer reports foul smelling urine. pt had recent admission for acute encephalopathy associated with UTI, Ucx growing e coli sensitive to ctx. Dx - UA with positive leuk esterase, wbc, and bacteria - CXR mild vascular congestion - troponin : 0.076--> (continue trending q8hr till peaked and downtrending) - Bcx pending - Urine Cx pending Tx - CTX 1 gm IV QD (01/11- - IV fluids LR 85cc/hr - APAP IV PRN for fever #Acute encephalopathy, likely toxic pt with developmental delay. presents with AMS per caregiver Yomira, no focal deficits. likely 2/2 UTI, CTM Dx - Bcx pending Tx - treat uti, see above - Delirium precautions (avoid sedating meds) - speech evaluation in setting of AMS. #Hypokalemia - daily cmp - replete as indicated (IV until pt can tolerate PO) #Nonblanching petichial rash #Thrombycytopenia noted on exam, to have nonblaching red macular erruptions that are non palpable. PLT chronically low 74. - hold heparin with PLT <50 Chronic #T2DM pt previously taking metformin, no longer. - carb consistent diet, HOLDING diet in setting of AMS, and c/f possible aspiration - ISS q6hr #GERD - Protonxi 40 mg IV qd #HTN BP stable 120s-130s - HOLD home losartan 50 mg - HOLD asprin 81 mg #HLD not on statin #Overactive bladder - holding home oxybutynin #Schizoprenia #Depression cont home medications HOLD PO meds until able to tolerate PO safely - Melatonin 9 mg qhs - risperidone 1 mg - levomilnacipran 80 mg qhs - benztropine 1mg qhs [facility] (pt was previously ambulating with walker), pending uti cultures, blood cx, on iv abx Diet: HOLD until less altered) Dyphagia 2- Carb consistent diet Lines: 85ml/hr LR Bowel Reg: Senna 1 tab qd prn once able to tolerate PO VTE ppx: subq heparin q12 (hold if plt < 50) GI ppx: protonix 40 IV qd Code status:FULL Plan discussed with Dr. Martínez, Dr Valenzuela, and Dr. Cayla Denney MD PGY1 Attending Provider Attestation/Addendum After examination of the patient and review of the clinical data I feel that this patient needs admission to the hospital for further treatment/evaluation. I have discussed and was present for the essential components of the history, physical examination, diagnosis, and treatment plan with the resident. I agree with the patient's care as documented by the resident and amended herein by me. Eran Kulkarni, DO. Although this document has been carefully reviewed, there may still be some phonetic and other typographical errors. These errors are purely grammatical due to imperfections in the software program and should not be construed in any way to compromise the substance of the patient's medical care during this visit. Patient seen and evaluated in the ED. Patient is a 74-year-old female with a significant past medical history of type 2 diabetes, hyperlipidemia, hypertension, GERD, schizophrenia, depression, developmental delay and recurrent UTIs, presented to the ED from her assisted living facility for worsening encephalopathy and generalized malaise over the past several days. Of note, patient recently discharged in October for similar symptoms from urinary tract infection at that time namely with E. coli. In the ED, patient was tachycardic with a pulse of 104, tachypneic with a respiratory rate of 35, febrile with a Tmax of 103, patient was on 6 L NC, SpO2 97%. Significant labs include a platelet count of 74 which has been low in the past and potassium of 3.3. Chest x-ray unremarkable, troponin slightly elevated 0.76, BNP 363, Pro-Cedric 5.42 and a positive UA. Patient was given fluids and antibiotics in the ED. Patient subsequently admitted to telemetry for sepsis secondary to urinary tract infection and demand ischemia. Ceftriaxone started, blood and urine cultures pending, patient placed on IVF. Will continue to follow cultures, likely discharge back to facility in 2 to 3 days pending improvement. Patient may need urology follow-up in the outpatient setting for recurrent UTIs, I did discuss the importance of hygiene with the caregiver who was at bedside. Continue to monitor closely while she is here
[2025-01-11] MEDS: RINGERS LACTATED 1000 ML 1,000 ML 85 ML IV ×2 (12:20→21:49)
[2025-01-11 13:44] LABS: Troponin I 0.061 ng/mL (0.0-0.045)
--- NOTE | 2025-01-11 15:09 | PC.NURSE ---
Patient awake and alert at this time, following commands, patient closer to her baseline, per careprovider at bedside.
--- NOTE | 2025-01-11 18:30 | PC.NURSE ---
Called Dr. Kulkarni informed him, patient awake and alert asking for food and water. Per Cayla Norton ok for patient to eat, food tray ordered.
[2025-01-11] MEDS: INSULIN LISPRO (AdmeLOG) 1 UNIT/0.01 ML UNIT SC (18:38)
[2025-01-11 19:54] LABS: Troponin I 0.033 ng/mL (0.0-0.045)
[2025-01-11] MEDS: HEPARIN SOD INJ 5000 UNIT/ML VIAL SC (21:49)
[2025-01-12] VITALS (8 sets, daily range): BP systolic 120–156; BP diastolic 67–90; PULSE 59–93; RESP 15–24; TEMP 36.1–36.7; O2SAT 96–99; BMI 24.3
[2025-01-12 05:17] LABS: Basophils # (Auto) 0.0 Thou/mm3 (0.0-0.2); Basophils % (Auto) 0 % (0-2.5); Eosinophils # (Auto) 0.0 Thou/mm3 (0.0-0.5); Eosinophils % (Auto) 0 % (0-10); Hematocrit 38.0 % (36.0-46.0); Hemoglobin 12.4 g/dL (12.0-16.0); Immature Granulocytes Auto 0.05 Thou/mm3 (0.00-0.00); Lymphocytes # (Auto) 1.1 Thou/mm3 (1.0-4.8); Lymphocytes % (Auto) 13 % (10-50); Mean Corpuscular HGB Conc 32.6 g/dl (31.0-37.0); Mean Corpuscular Hemoglobin 30.4 pg (25.0-35.0); Mean Corpuscular Volume 93 fL (80-100); Monocytes # (Auto) 1.5 Thou/mm3 (0.0-0.8); Monocytes % (Auto) 17 % (0-12); Neutrophils # (Auto) 6.0 Thou/mm3 (1.8-7.7); Neutrophils % (Auto) 69 % (37-80); Nucleated Red Blood Cell # 0.00 Thou/mm3 (0.00-0.00); Nucleated Red Blood Cell % 0 /100 WBC (0); RDW Standard Deviation 49.6 fL (36.4-46.3); Red Blood Count 4.08 Miln/mm3 (4.00-5.20); White Blood Count 8.7 Thou/mm3 (3.6-11.0)
[2025-01-12 05:21] LABS: Platelet Count 60 Thou/mm3 (140-440)
[2025-01-12 05:53] LABS: Alanine Aminotransferase 21 U/L (10-49); Albumin, Serum 3.3 gm/dL (3.4-4.8); Albumin/Globulin Ratio 1.3 (1.2-2.2); Alkaline Phosphatase 63 U/L (46-116); Anion Gap 10 (7-16); Aspartate Amino Transferase 32 U/L (0-34); BUN/Creatinine Ratio 28 Ratio (12-20); Bilirubin,Total 0.4 mg/dL (0.3-1.2); Blood Urea Nitrogen 14 mg/dL (9-23); Calcium 9.0 mg/dL (8.3-10.6); Calcium (Corrected) 9.6 mg/dL (8.5-10.1); Carbon Dioxide 24.3 mMol/L (20.0-31.0); Chloride 107 mMol/L (98-107); Creatinine (Component) 0.5 mg/dL (0.6-1.3); Estimated Creatinine Clearance 90.2 mL/min (>60); Globulin 2.5 gm/dL (2.3-3.5); Glucose 108 mg/dL (74-106); Magnesium 2.0 mg/dL (1.6-2.6); Osmolality,Calculated 282 (275-295); Phosphorous 3.0 mg/dL (2.4-5.1); Potassium 4.4 mMol/L (3.4-5.1); Sodium 141 mMol/L (136-145); Total Protein 5.8 gm/dL (5.7-8.2); eGFR > 60 See Note
--- NOTE | 2025-01-12 07:39 | ESPR_ITS ---
<Statement entered by Senait Sebastian MD - 01/18/25 09:11> I reviewed above note and agree with findings and plans. I have also personally examined the patient with medicine team and went over assessment and plan with medical team including r d internship and resident physician. <Statement entered by Rosalind Valenzuela MD - 01/13/25 15:56> I discussed with and supervised the r d internship physician who took care of this patient. I personally saw and examined the patient and discussed the assessment and plan with the entire medicine team, including my attending Dr. Sebastian, I agree with most of the assessment and plan as documented below Rosalind Valenzuela M.D. PGY-3 Documentation for date of: 01/12/25 Subjective Subjective Interval history: Ms. Basilia Muir is a 74 yo woman with a past medical history of type 2 diabetes, hyperlipidemia, hypertension, GERD, schizophrenia, depression, and developmental delay and recurrent UTIs presents to the ED for evaluation of altered mental status, received Ceftriaxone in the ED, will continue with IV abx. 01/12/2025: Patient seen and examined on bedside. Patient remained afebrile and vital signs stable. Patient appears to be back at her baseline mental status able to state her name and date of and engage with providers. Troponins peaked and were downtrending, white blood cells 8.7, urine cultures growing GNR pending speciation, clinically much improved from time of admission. Exam Vital Signs Temp Pulse Resp BP Pulse Ox O2 Del Method O2 Flow Rate 97.0 F 65 18 128/72 96 Room Air 6 01/12/25 04:00 01/12/25 04:00 01/12/25 04:00 01/12/25 04:00 01/12/25 04:00 01/12/25 04:00 01/11/25 13:22 Narrative Exam GENERAL: no acute distress, comfortably laying in bed smiling HEENT: Head AT/ NC. Mucous membranes dry. PERRL. nl conjuntiva, some crusting and weeping around eyes CARDIOVASCULAR: RRR. Normal S1/S2, No m/r/g. trace bilateral edema RESPIRATORY: CTAB. No wheezing, rhonchi, crackles. GASTROINTESTINAL: Abdomen soft, non tender no palpable masses. Bowel sounds present, no suprapubic pain on palpation MUSCULOSKELETAL:? No cyanosis or edema, no visible joint swelling, Left Lower extremity tender to palpation NEUROLOGICAL: oriented to self. CN II-XII grossly intact. No focal deficits. Moving extrem 4x. able to follow basic commands. pt responding more appropriately to questions. PSYCHIATRIC: Awake and alert, not agitated, normal mood and affect. SKIN: No obvious rashes, no jaundice, decrease skin turgor Objective Labs 01/12/25 04:34 01/12/25 04:34 Labs: Laboratory Results - last 24 hr 01/11/25 01/11/25 01/11/25 07:23 09:00 12:12 WBC 7.3 RBC 4.36 Hgb 13.3 Hct 40.1 MCV 92 MCH 30.5 MCHC 33.2 RDW Std Deviation 50.2 H Plt Count 74 L Neut % (Auto) 83 H Lymph % (Auto) 4 L [place] % (Auto) 12 Eos % (Auto) 0 Baso % (Auto) 0 Neut # (Auto) 6.1 Lymph # (Auto) 0.3 L [place] # (Auto) 0.9 H Eos # (Auto) 0.0 Baso # (Auto) 0.0 Immature Gran # (Auto) 0.04 H Absolute Nucleated RBC 0.00 Immature Gran % 1 H Nucleated RBC % 0 PT 12.0 INR 1.1 APTT 28.9 Sodium 143 Potassium 3.3 L Chloride 107 Carbon Dioxide 24.4 Anion Gap 12 BUN 23 Creatinine 0.9 Estim Creat Clear Calc 58.8 L eGFR > 60 BUN/Creatinine Ratio 26 H Glucose 164 H Calculated Osmolality 292 Lactic Acid 1.1 Calcium 9.3 Corrected Calcium 9.5 Phosphorus Magnesium 1.9 Total Bilirubin 0.5 AST 16 ALT 13 Alkaline Phosphatase 71 Troponin I 0.076 H* 0.061 H* B-Natriuretic Peptide 363 H Total Protein 6.1 Albumin 3.8 Globulin 2.3 Albumin/Globulin Ratio 1.7 Amylase < 20 L Procalcitonin 5.42 H Ur Collection Type Catheter Urine Color Yellow Urine Clarity Turbid A Urine pH 6.5 Ur Specific [place] 1.021 Urine Protein 1+ A Urine Glucose (UA) Negative Urine Ketones Trace Urine Blood 2+ A Urine Nitrite Negative Urine Bilirubin Negative Urine Urobilinogen (Auto) 6.0 Ur Leukocyte Esterase Positive Urine RBC 94 H Urine WBC 3778 H Ur Squamous Epith Cells 2 Ur Transition Epith Cell 3 Urine Bacteria 4+ A Misc Test Result Platelets confirmed 01/11/25 01/12/25 19:30 04:34 WBC 8.7 RBC 4.08 Hgb 12.4 Hct 38.0 MCV 93 MCH 30.4 MCHC 32.6 RDW Std Deviation 49.6 H Plt Count 60 L Neut % (Auto) 69 Lymph % (Auto) 13 [place] % (Auto) 17 H Eos % (Auto) 0 Baso % (Auto) 0 Neut # (Auto) 6.0 Lymph # (Auto) 1.1 [place] # (Auto) 1.5 H Eos # (Auto) 0.0 Baso # (Auto) 0.0 Immature Gran # (Auto) 0.05 H Absolute Nucleated RBC 0.00 Immature Gran % 1 H Nucleated RBC % 0 PT INR APTT Sodium 141 Potassium 4.4 D Chloride 107 Carbon Dioxide 24.3 Anion Gap 10 BUN 14 Creatinine 0.5 L Estim Creat Clear Calc 90.2 eGFR > 60 BUN/Creatinine Ratio 28 H Glucose 108 H D Calculated Osmolality 282 Lactic Acid Calcium 9.0 Corrected Calcium 9.6 Phosphorus 3.0 Magnesium 2.0 Total Bilirubin 0.4 AST 32 ALT 21 Alkaline Phosphatase 63 Troponin I 0.033 B-Natriuretic Peptide Total Protein 5.8 Albumin 3.3 L D Globulin 2.5 Albumin/Globulin Ratio 1.3 Amylase Procalcitonin Ur Collection Type Urine Color Urine Clarity Urine pH Ur Specific [place] Urine Protein Urine Glucose (UA) Urine Ketones Urine Blood Urine Nitrite Urine Bilirubin Urine Urobilinogen (Auto) Ur Leukocyte Esterase Urine RBC Urine WBC Ur Squamous Epith Cells Ur Transition Epith Cell Urine Bacteria Misc Test Result Quality Measures Quality Measures sepsis Current suspected stage: sepsis Possible source: genitourinary Blood cultures ordered: completed in ED Antibiotic ordered: Yes Advance care planning discussed with:: patient and other Assessment & Plan Assessment Current Active Medications: Generic Name Dose Route Start Last Admin Trade Name Freq PRN Reason Stop Dose Admin Acetaminophen 650 mg 01/11/25 11:29 Acetaminophen 325 Mg Tablet PO 02/10/25 11:28 On Hold: 01/11/25 13:41 Q6H PRN PAIN SCALE 1-3 (mild Dextrose 25 ml 01/11/25 13:28 Dextrose 50%-Water Inj 50 Ml Syringe IV 02/10/25 13:27 Q15MIN PRN BG 50-70 responsive npo pt Dextrose 50 ml 01/11/25 13:28 Dextrose 50%-Water Inj 50 Ml Syringe IV 02/10/25 13:27 Q15MIN PRN BG <50 OR BG <70 & pt unresponsive Glucagon 1 mg 01/11/25 13:28 Glucagon Inj 1 Mg Vial IM Q15MIN PRN BG <70, and no IV access Heparin Sodium (Porcine) 5,000 unit 01/11/25 21:00 01/11/25 21:49 Heparin Sod Inj 5000 Unit/Ml Vial SC 01/25/25 20:59 5,000 unit On Hold: 01/12/25 07:34 Q12HR DAVE Administration Protocol Lactated Ringer's 1,000 mls @ 85 mls/hr 01/11/25 11:35 01/11/25 21:49 Lactated Ringers IV 02/10/25 11:34 85 mls/hr .[id number] DAVE Administration Ceftriaxone Sodium/Dextrose 1 gm in 50 mls @ 100 mls/hr 01/12/25 09:00 Rocephin/D5w 1gm Iv Premix IV 01/19/25 08:59 QDAY [facility] Insulin Human Lispro 0 unit 01/12/25 07:30 01/12/25 07:17 Insulin Lispro (Admelog) 1 Unit/0.01 Ml Unit SC 02/11/25 07:29 Not Given ACHS [facility] Protocol Ondansetron HCl 4 mg 01/11/25 11:29 Ondansetron Inj 2 Mg/Ml Inj 2 Ml IVP 02/10/25 11:28 Q6H PRN NAUSEA OR VOMITING Protocol Pantoprazole Sodium 40 mg 01/12/25 09:00 Pantoprazole Inj 40 Mg Vial IVP 02/11/25 08:59 QDAY [facility] Sennosides 1 tab 01/11/25 13:44 Senna Tablet PO 02/10/25 13:43 QDAY PRN CONSTIPATION, NO BM IN 2 DAYS Protocol Plan Ms. Basilia Muir is a 74 yo woman with a past medical history of type 2 diabetes, hyperlipidemia, hypertension, GERD, schizophrenia, depression, and developmental delay and recurrent UTIs presents to the ED for evaluation of altered mental status, received Ceftriaxone in the ED, will continue with IV abx. pending ucx speciation growing gnr Acute Hypoxic Respiratory Failure 2/2- RESOLVED Sepsis 2/2 - resolving UTI SOFA score 6 (glassgow coma 10-12, Plt 74 ) Febrile 103 on admission, on 6L NC satting 97% pt with hx of recurrent UTI,has previously been on nitrofuranotoin and failing oupatient treatment. presents with bacturia. pt unable to report LUTS, and pt did not demonstrate pain to palpation of suprapubic abdomen. caregivers non medical reports foul smelling urine. pt had recent admission for acute encephalopathy associated with UTI, Ucx growing e coli sensitive to ctx. Dx - UA with positive leuk esterase, wbc, and bacteria - CXR mild vascular congestion - troponin : 0.076 now downtrending - Bcx NGTD @24 hrs - Urine Cx GNR pending speciation Tx - CTX 1 gm IV QD (01/11- - IV fluids LR 85cc/hr - APAP IV PRN for fever #Acute encephalopathy, likely toxic - RESOLVED pt with developmental delay. presents with AMS per caregiver Yomira, no focal deficits. likely 2/2 UTI, CTM Dx - Bcx NGTD @ 24 hrs Tx - treat uti, see above - Delirium precautions (avoid sedating meds) #Hypokalemia - daily cmp - replete as indicated (IV until pt can tolerate PO) #Nonblanching petichial rash #Thrombycytopenia noted on exam, to have nonblaching red macular erruptions that are non palpable. PLT chronically low 74. - hold heparin with PLT <50 (HELD today) Chronic #T2DM pt previously taking metformin, no longer. - carb consistent diet dysphagia 2 alteration - ISS ACHS #GERD - Protonix 40 mg IV qd #HTN - losartan 50 mg - asprin 81 mg #HLD - simvisatin 40 #Overactive bladder - holding home oxybutynin #Schizoprenia #Depression cont home medications - Melatonin 9 mg qhs - risperidone 1 mg - levomilnacipran 80 mg qhs - benztropine 1mg qhs Dispo: to [facility] (pt was previously ambulating with walker), pending uti cultures speciation, blood cx, on iv abx Diet: Dyphagia 2- Carb consistent diet Lines: 85ml/hr LR Bowel Reg: Senna 1 tab qd VTE ppx: subq heparin q12 (hold if plt < 50) (HELD today) GI ppx: protonix 40 IV qd Code status:FULL Plan discussed with Dr Valenzuela, and Dr. Jaz Denney MD PGY1
[2025-01-12 08:06] LABS: Slide Review Platelets confirmed
[2025-01-12] MEDS: cefTRIAXone/D5w 1gm IV premix 1 GM/50 ML BAG IV (08:28)
--- NOTE | 2025-01-12 09:00 | PC.SS ---
Update: Urine cultures are pending on behalf of the patient.
--- NOTE | 2025-01-12 14:21 | PC.SS ---
Rounding Note: Urine cultures are pending. Plan to d/c tomorrow.
--- NOTE | 2025-01-12 15:23 | PC.SS ---
TIP BANDER conducted phone contact with the patient?s [facility] staff, Hollie ; to conduct initial assessment and to discuss discharge planning.? Patient is a resident of [facility].? Patient has resided at the facility since 2009.? Per staff, patient does not possess any living relatives.? Patient utilizes a walker to assist with ambulation.? Patient does not utilize home oxygen.? Patient requires assistance with completion of ADL?s.? Patient is verbal.? Patient is aligned with [facility].? The patient?s [facility] case manage is Glory Marquez.? CV makes medical decisions on behalf of the patient.? The patient is not conserved.? The patient utilizes [facility] for PCP services.? [facility] is utilized for medication services.? The discharge plan is for the patient to return to [facility].? The [facility] will provide transportation on behalf of the patient.? No further discharge needs identified by the patient?s staff.? No further intervention required at this time, social science professor will be available to address any further concerns.? Next of Kin: Nydia Marquez D/Rajinder Plan: Correction
[2025-01-12] MEDS: LOSARTAN POTASSIUM 25 MG TABLET 50 MG PO (16:47)
[2025-01-12] MEDS: RINGERS LACTATED 1000 ML 1,000 ML 85 ML IV (16:47)
[2025-01-12] MEDS: BENZTROPINE 0.5 MG TABLET 1 MG PO (20:23)
[2025-01-12] MEDS: ATORVASTATIN CALCIUM 10 MG TABLET PO (20:23)
[2025-01-12] MEDS: LEVOMILNACIPRAN 80 MG PO (20:45)
[2025-01-13] VITALS (8 sets, daily range): BP systolic 135–163; BP diastolic 81–103; PULSE 69–111; RESP 15–24; TEMP 36.1–36.2; O2SAT 94–97
[2025-01-13 05:57] LABS: Basophils # (Auto) 0.0 Thou/mm3 (0.0-0.2); Basophils % (Auto) 0 % (0-2.5); Eosinophils # (Auto) 0.0 Thou/mm3 (0.0-0.5); Eosinophils % (Auto) 1 % (0-10); Hematocrit 34.5 % (36.0-46.0); Hemoglobin 11.6 g/dL (12.0-16.0); Immature Granulocytes Auto 0.05 Thou/mm3 (0.00-0.00); Lymphocytes # (Auto) 0.9 Thou/mm3 (1.0-4.8); Lymphocytes % (Auto) 15 % (10-50); Mean Corpuscular HGB Conc 33.6 g/dl (31.0-37.0); Mean Corpuscular Hemoglobin 30.6 pg (25.0-35.0); Mean Corpuscular Volume 91 fL (80-100); Monocytes # (Auto) 1.2 Thou/mm3 (0.0-0.8); Monocytes % (Auto) 20 % (0-12); Neutrophils # (Auto) 3.8 Thou/mm3 (1.8-7.7); Neutrophils % (Auto) 63 % (37-80); Nucleated Red Blood Cell # 0.00 Thou/mm3 (0.00-0.00); Nucleated Red Blood Cell % 0 /100 WBC (0); Platelet Count 82 Thou/mm3 (140-440); RDW Standard Deviation 47.7 fL (36.4-46.3); Red Blood Count 3.79 Miln/mm3 (4.00-5.20); White Blood Count 6.1 Thou/mm3 (3.6-11.0)
[2025-01-13] MEDS: RINGERS LACTATED 1000 ML 1,000 ML 85 ML IV (06:25)
[2025-01-13 06:36] LABS: Alanine Aminotransferase 78 U/L (10-49); Albumin, Serum 3.3 gm/dL (3.4-4.8); Albumin/Globulin Ratio 1.6 (1.2-2.2); Alkaline Phosphatase 73 U/L (46-116); Anion Gap 8 (7-16); Aspartate Amino Transferase 57 U/L (0-34); BUN/Creatinine Ratio 28 Ratio (12-20); Bilirubin,Total 0.3 mg/dL (0.3-1.2); Blood Urea Nitrogen 14 mg/dL (9-23); Calcium 9.0 mg/dL (8.3-10.6); Calcium (Corrected) 9.6 mg/dL (8.5-10.1); Carbon Dioxide 28.1 mMol/L (20.0-31.0); Chloride 107 mMol/L (98-107); Creatinine (Component) 0.5 mg/dL (0.6-1.3); Estimated Creatinine Clearance 90.2 mL/min (>60); Globulin 2.1 gm/dL (2.3-3.5); Glucose 103 mg/dL (74-106); Magnesium 1.6 mg/dL (1.6-2.6); Osmolality,Calculated 285 (275-295); Phosphorous 2.5 mg/dL (2.4-5.1); Potassium 4.0 mMol/L (3.4-5.1); Sodium 143 mMol/L (136-145); Total Protein 5.4 gm/dL (5.7-8.2); eGFR > 60 See Note
[2025-01-13] MEDS: LOSARTAN POTASSIUM 25 MG TABLET 50 MG PO (08:28)
[2025-01-13] MEDS: ASPIRIN EC 81 MG TABEC PO (08:28)
[2025-01-13] MEDS: cefTRIAXone/D5w 1gm IV premix 1 GM/50 ML BAG IV (08:28)
[2025-01-13] MEDS: BENZTROPINE 0.5 MG TABLET 1 MG PO (08:29)
[2025-01-13] MEDS: Magnesium Sulfate 4 GM Ivpb 4 GM/50 ML BAG IV (08:30)
--- NOTE | 2025-01-13 11:48 | ESDS_ITS ---
<Statement entered by Senait Sebastian MD - 01/21/25 17:35> I reviewed above note and agree with findings and plans. I have also personally examined the patient with medicine team and went over assessment and plan with medical team including internet database specialist and resident physician. Planned Discharge Date 01/13/25 DS: Providers Provider Date of admission: 01/11/25 11:29 Primary care physician: Gera Seay MD Admitting Provider: Angelito Kulkarni DO Attending Provider on Admission: Senait Sebastian MD Consults: 01/12/25 09:00 Referral Speech Therapy Routine Comment: Attending Provider on DC: Senait Sebastian MD Discharging Provider: Senait Sebastian MD DS: Diagnosis Problem List Completed Was Problem List Reviewed/Reconciled?: Yes Hospital Course Hospital Course Hospital course: Ms. Basilia Muir is a 74 yo woman with a past medical history signficiant for type 2 diabetes, hyperlipidemia, hypertension, GERD, schizophrenia, depression, developmental delay, and recurrent UTIs who presented to [facility] ED on 01/11/25 for AMS and foul smelling urine. She was admitted for acute encephalopathy and sepsis 2/2 UTI. Patient meets sepsis criteria based on high SOFA score, and end organ damage noted in both her elevated troponin (peaked at 0.76), decreased GCS from her baseline, confusion, and SOB. She was started on IV ceftriaxone with follow-up urine cultures positive for pansensitive E. coli. Encephalopathy resolved and patient was back to her baseline the next day. Patient was in stable condition and ready for discharge. She is to complete 5 more days of Keflex course as prescribed. Discharge Recommendations: Please take your home medications as prescribed. Please take your new medication, Cephalexin 500mg twice daily for a total of 5 days. Please return to the ED if your symptoms worsen. Please see your PCP within 1 week. Hospital Diagnoses: #Sepsis (resolved) 2/2 E coli UTI #Acute encephalopathy-resolved #Hypokalemia-resolved #Nonblanching petichial rash #Thrombycytopenia #T2DM #GERD #HTN #HLD #Overactive bladder #Schizoprenia #Depression The patient's management plan was discussed with my attending physician Dr. Sebastian. Nadine Martínez MD, PGY-2 Time Spent with Patient Time attestation: Total time spent providing and/or coordinating discharge services: Time spent: Greater than 30 minutes Exam Vital Signs Temp Pulse Resp BP Pulse Ox O2 Del Method O2 Flow Rate 97.2 F 93 20 142/83 H 94 L Room Air 6 01/13/25 08:00 01/13/25 08:28 01/13/25 08:00 01/13/25 08:28 01/13/25 08:00 01/13/25 08:00 01/11/25 13:22 Narrative Exam GENERAL: no acute distress, comfortably laying in bed smiling HEENT: Head AT/ NC. Mucous membranes dry. PERRL. nl conjuntiva, some crusting and weeping around eyes CARDIOVASCULAR: RRR. Normal S1/S2, No m/r/g. trace bilateral edema RESPIRATORY: CTAB. No wheezing, rhonchi, crackles. GASTROINTESTINAL: Abdomen soft, non tender no palpable masses. Bowel sounds present, no suprapubic pain on palpation MUSCULOSKELETAL:? No cyanosis or edema, no visible joint swelling NEUROLOGICAL: oriented to self and place. CN II-XII grossly intact. No focal deficits. Moving extrem 4x. able to follow basic commands. pt responding more appropriately to questions. PSYCHIATRIC: Awake and alert, not agitated, normal mood and affect. SKIN: No obvious rashes, no jaundice Discharge Plan Plan Patient Disposition: HOME (Self Care) Patient condition on transfer: Stable Prescriptions/Referrals Prescriptions/Med Rec: New cephalexin 500 mg capsule 500 mg PO Q12H Qty: 10 0RF Continued ascorbic acid (vitamin C) [Vitamin C] 500 MG tablet 500 mg PO QDAY Qty: 0 aspirin 81 mg Tablet,Delayed Release (Dr/Ec) 1 tab PO DAILY Rx Instructions: for cardio protection simvastatin 20 mg tablet 20 mg PO QPM docusate sodium 100 mg capsule 100 mg PO BID diclofenac sodium 75 mg tablet,delayed release (DR/EC) 75 mg PO QDAY Rx Instructions: for pain/inflammation Fetzima 80 mg capsule,extended release 24 hr 80 mg PO HS Rx Instructions: for behavior disorder oxybutynin chloride 15 mg tablet extended release 24hr 15 mg PO DAILY risperidone 1 mg tablet 1 mg PO BID benztropine 1 mg tablet 1 mg PO Q12HR melatonin 10 mg capsule 10 mg PO HS PRN (Reason: sleep) losartan 50 mg tablet 50 mg PO DAILY divalproex 500 mg tablet,delayed release (DR/EC) 500 mg PO TID Referrals: Gera Seay MD [Primary Care Provider, Family Practice] Patient/Caregiver Discharge Instructions Other Discharge Activity Instructions:: Please take your home medications as prescribed. Please take your new medication, Cephalexin 500mg twice daily for a total of 5 d ays. Please return to the ED if your symptoms worsen. Please see your PCP within 1 week. Education Materials: Urinary Tract Infections in Women, Understanding Urinary Tract ..., Sepsis Print Language: [place]ian Stand Alone Forms: Malika Award Info., Patient Portal Info Letter Discharge Order Discharge Orders: Discharge (Routine); Ordered 01/13/25 Ordered By: Nadine Martínez Quality Discharge Quality Measures VTE prophylaxis
== END 2025-01-13 17:44 | disposition home or self-care (01) | DRG 871 ==
LOC: SERX 10:37 → SERHOLD 11:45 → S2NX 21:17
PROVIDERS: Admitting Provider Student in an Organized Health Care Education/Training Program; Emergency Provider Emergency Medicine; PCP Family Medicine; Visit Provider Internal Medicine
DX: A41.51 Sepsis due to Escherichia coli [E. coli] (principal); G93.41 Metabolic encephalopathy; J96.01 Acute respiratory failure with hypoxia; N39.0 Urinary tract infection, site not specified; N17.9 Acute kidney failure, unspecified; K21.9 Gastro-esophageal reflux disease without esophagitis; I10 Essential (primary) hypertension; E11.9 Type 2 diabetes mellitus without complications; F20.9 Schizophrenia, unspecified; E87.6 Hypokalemia; E78.5 Hyperlipidemia, unspecified; N32.81 Overactive bladder; F32.A Depression, unspecified; Z87.440 Personal history of urinary (tract) infections; Z79.82 Long term (current) use of aspirin
CPT/HCPCS: 36415; 71045; 80053; 81001; 82150; 83605; 83735; 83880; 84100; 84145; 84484; 85025; 85610; 85730; 87040; 87077; 87081; 87086; 87186; 87400; 87811; 92526; 92610; 93005; 96361; 96365; 96372; 99285; A4649; J0131; J0696; J1644; J1815; J2470; J3475; J3480; J7030; J7120; A9270

== ENCOUNTER → 2025-02-23 | Outpatient (CLI) | payer MEDICARE, MEDICAID, SELFPAY ==
--- NOTE | 2025-02-23 12:40 | XR_ITS ---
Examination: Bone densitometry Date and time of exam: February 23, 2025, 1308 hours INDICATIONS: Menopause age 53 Technique: Lumbar spine and hip total bone mineralization values of an calculated. Peak reference and age match control results have been displayed. Findings: Lumbar spine total bone mineralization is 1.408 gm/cm2. This is 3.3 standard deviations above peak reference. This is 5.6 standard deviations above age-matched controls. Hip total bone mineralization is 0.765 gm/cm2 This is 1.5 standard deviations below peak reference. This is 0.3 standard deviations above age-matched controls Impression: There is normal mineralization based on lumbar spine measurements. There is osteopenia based on hip measurements Lumbar mineralization is increased 23.2% compared with October 09, 2010 Hip mineralization is decreased 13.5% compared with October 09, 2010
== END | disposition home or self-care (01) ==
PROVIDERS: PCP Family Medicine; Referring Provider Family Medicine; Visit Provider Family Medicine
DX: M85.89 Other specified disorders of bone density and structure, multiple sites (principal)
CPT/HCPCS: 77080